=== PATIENT | male | born 2000 | race Caucasian/White ===

== ENCOUNTER 2025-01-15 11:10 | Emergency (ER) | payer OTHER, MEDICARE, MEDICAID, SELFPAY ==
[2025-01-15] VITALS (24 sets, daily range): BP systolic 117–154; BP diastolic 70–92; PULSE 62–99; RESP 12–20; O2SAT 91–99
--- NOTE | 2025-01-15 11:26 | PC.NURSE ---
Patient has propanolol filled on 01/13 with 60 tablets. 33 tablets are left in the bottle.
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
--- OUTSIDE RECORDS SUMMARY | 2025-01-15 11:59 | XMS_ITS | Clinical Summary ---
Author Organization [facility] Address [facility] [place] [address] Care Team Providers Care Technology Intern Name Role Phone None, Provider MD Primary Care Provider Unavaila ble Allergies No known active allergies Medications brexpiprazole 2 MG tablet Take 2 mg by mouth daily. 01/30/2022 Active metFORMIN ER 500 MG 24 hr tablet Take 1,000 mg by mouth 2 (two) times daily. 06/21/2021 Active hydrOXYzine 25 MG tablet Take 25 mg by mouth 3 (three) times daily as needed for Itching. 01/30/2022 Active Social History Tobacco Use Types Packs/Day Years Used Date Smoking Tobacco: Never Assessed Sex and Gender Information Value Date Recorded Sex Assigned at Not on file Legal Sex Male 8:14 PM CDT Gender Identity Not on file Sexual Orientation Not on file Last Filed Vital Signs Vital Sign Reading Time Taken Comments Blood Pressure 141/81 03/14/2022 12:43 PM CDT Pulse 92 03/14/2022 12:43 PM CDT Temperature 36.8 C (98.3 F) 03/14/2022 12:43 PM CDT Respiratory Rate 20 03/14/2022 12:43 PM CDT Oxygen Saturation 99% 03/14/2022 12:43 PM CDT Inhaled Oxygen Concentration - - Weight 122.5 kg (270 lb) 03/13/2022 8:28 PM CDT Height 195.6 cm (6' 5 ) 03/13/2022 8:28 PM CDT Body Mass Index 32.02 03/13/2022 8:28 PM CDT Plan of Treatment Health Maintenance Due Date Last Done Comments Annual Physical 2004 HPV Vaccines (1 - Male 3-dos e series) 2016 Meningococcal B Vaccine (1 o f 2 - Standard) 2017 Hepatitis C 2019 DTaP, Tdap and Td Vaccines ( 1 - Tdap) 2020 Hepatitis B Vaccines (1 of 3 - 19+ 3-dose series) 2020 COVID-19 Vaccine (1 - 2023-2 5 season) 2024 Influenza Adult (#1) 2024 Meningococcal Vaccine Aged Out No claude ivelisse eligible based on patient's age to complete this topic Pneumococcal Vaccine: Pediat rics (0 to 5 Years) and At-Risk Patients (6 to 64 Years) Aged Out No longer eligible b ased on patient's age to complete this topic RSV Immunizations Under 20 Months Aged Out No longer eligible based on patient's age to complete this topic Insurance [facility] MEDICARE Care Teams Technology Intern Relationship Specialty Start Date End Date None, Provider, PCP - General 03/13/22
--- OUTSIDE RECORDS SUMMARY | 2025-01-15 11:59 | XMS_ITS | Patient Health Record ---
Author Organization [facility] Address [address] [place] [address] Care Team Providers Care Instructor Tap Dancing Name Role Phone Alba Pompa Primary Care Provider [phone] Harjit Hazelnavya Unavailable [phone] ShawMarina Unavailable [phone] Yuliet Petersony Unavailable [phone] See Mak Unavailable [phone] Allergies Allergen (clinical drug ingredient) Drug/Non Drug Allergy documented on EMR Reaction Allergy Type Onset Date Status clindamycin Clindamycin Unknown Drug Allergy Act tiana Results Component Value Reference Range Notes HIV Screen *HIV 1, 2 Ab, p24 Ag ([id number]) (Not yet reviewed by provider) Interpretation: Performing Lab:[facility], [address] [facility], Phone - [phone], [facility] Notes[facility]Report: HIV Ab/p24 Ag Screen Non Reactive Non Reactive HIV-1/HIV-2 antibodies and HIV-1 p24 antigen were NOT detected. There is no laboratory evidence of HIV infection. HIV Negative CMP 14 Comprehensive Metabol ic Panel* (Not yet reviewed by provider) Interpretation: Performing Lab:[facility], [address] [employer], [place], Phone - [phone], [facility] Notes/Report: Glucose 90 70-99 mg/dL BUN 10 6-20 mg/dL Creatinine 0.83 0.76-1.27 mg/dL eGFR 126 >59 mL/min/1.73 BUN/Creatinine Ratio 12 9-20 Sodium 142 134-144 mmol/L Potassium 4.4 3.5-5.2 mmol/L Chloride 104 96-106 mmol/L Carbon Dioxide, Total 24 20-29 mmol/L Calcium 9.6 8.7-10.2 mg/dL Protein, Total 7.0 6.0-8.5 g/dL Albumin 4.7 4.3-5.2 g/dL Globulin, Total 2.3 1.5-4.5 g/dL Bilirubin, Total 0.3 0.0-1.2 mg/dL Alkaline Phosphatase 73 44-121 IU/L AST (SGOT) 33 0-40 IU/L ALT (SGPT) 48 0-44 IU/L CBC With Differential/Platel et* (Not yet reviewed by provider) Interpretation: Performing Lab:[facility] [place], [address] [facility], Phone - [phone], Director - Bill Notes/Report: WBC 5.9 3.4-10.8 x10E3/uL RBC 5.00 4.14-5.80 x10E6/uL Hemoglobin 14.8 13.0-17.7 g/dL Hematocrit 45.0 37.5-51.0 % MCV 90 79-97 fL MCH 29.6 26.6-33.0 pg MCHC 32.9 31.5-35.7 g/dL RDW 13.1 11.6-15.4 % Platelets 266 150-450 x10E3/uL Neutrophils 54 Not Estab. % Lymphs 33 Not Estab. % Monocytes 10 Not Estab. % Eos 2 Not Estab. % Basos 1 Not Estab. % Neutrophils (Absolute) 3.2 1.4-7.0 x10E3/uL Lymphs (Absolute) 1.9 0.7-3.1 x10E3/uL Monocytes(Absolute) 0.6 0.1-0.9 x10E3/uL Eos (Absolute) 0.1 0.0-0.4 x10E3/uL Baso (Absolute) 0.1 0.0-0.2 x10E3/uL Immature Granulocytes 0 Not Estab. % Immature Grans (Abs) 0.0 0.0-0.1 x10E3/uL QuantiFERON-TB Gold Plus ([id number]) (Not yet reviewed by provider) Interpretation: Performing Lab:[facility] [place], [address] [facility], [place], Phone - [phone], Director - Bill Notes/Report: QuantiFERON Incubation Incubation performed. QuantiFERON-TB Gold Plus Negative Negative No response to M tuberculosis antigens detected. Infection with M tuberculosis is unlikely, but high risk individuals should be considered for additional testing (ATS/IDSA/CDC Clinical Practice Guidelines, 2017). The reference range is an Antigen minus Nil result of <0.35 IU/mL. Chemiluminescence immunoassay methodology QuantiFERON Criteria QuantiFERON-TB Gold Plus is a qualitative indirect test for M tuberculosis infection (including disease) and is intended for use in conjunction with risk assessment, radiography, and other medical and diagnostic evaluations. The QuantiFERON-TB Gold Plus result is determined by subtracting the Nil value from either TB antigen (Ag) value. The Mitogen tube serves as a control for the test. QuantiFERON TB1 Ag Value 0.03 QuantiFERON TB2 Ag Value 0.02 QuantiFERON Nil Value 0.01 QuantiFERON Mitogen Value >10.00 12 Panel Urine Drug Screen Reviewed date:01/11/2025 12:09:44 PM Interpretation: Performing Lab: Notes/Report: THC POS KIRILL neg MOP (OPI) neg AMP neg MET neg BAR neg BZO POS MDMA neg MTD neg OXY neg PCP neg BUP neg Breathalyzer Reviewed date:01/11/2025 12:10:09 PM Interpretation: Performing Lab: Notes/Report: HUNTER 0.000 Reason For Referral No Information Medications Medication SIG (Take, Route, Frequency, Duration) Notes Start Date End Date Status Venlafaxine HCl ER 150 MG 1 capsule [...] a day for 30 days 01/13/2025 Active Propranolol HCl 20 MG 1 tablet Orally Tw ice a day for 30 days 01/13/2025 Active OLANZapine 15 MG 1 tablet Orally Once a day for 30 days Active Social History Tobacco Use: Social History Observation Description Date Details (start date - stop date) Never Smoker NA - NA PRAPARE Question Answer Notes Date Completed/Updated: 01/11/2025 What is your current housing situation? I have h ousing Are you worried about losing your housing? No What is the highest level of school that you have finished? High school diploma or GED What is your current work situation? Oth erwise unemployed but not seeking work (ex. 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 Check all that apply I do not have problems meeting my needs Has lack of transportation k ept you from medical appointments, meetings, work or from getting things needed for daily living? No How often do you see or talk to people that you care about and feel close to? (For example: talking to friends on the phone, visiting friends or family, going to pentecostalism or club meetings) More than 5 times a week In the past year have you sp ent more than 2 nights in a row in a shelter, nursing home, shelter center, or juvenile correctional facility? No Are you a refugee? No What country are you from? [place] Do you feel physically and e motionally safe where you currently live? Unsure In the past year, have you b een afraid of your partner or ex-partner? No PRAPARE Score: 4 Tobacco Control (Standard) Question Answer Notes Tobacco use: Nonsmoker Problems Problem Type SNOMED Code ICD Code Onset Dates Problem Status W/U Status Risk Notes Problem Generalized anxiety disorder (05085566) KATHLEEN (generalized anxiety disorder) (F41.1) Active confirmed Problem Autism (97098971) Autism (F84.0) Active confirmed Problem Moderate recurrent major depression (31762220) Recurrent depressive disorder, current episode moderate (F33.1) Active confirmed Vital Signs Heart Rate 113 /min 01/13/2025 Temperature 98.0 degrees Fahrenheit 01/11/2025 Respiratory Rate 16 /min 01/13/2025 Oximetry 98 % 01/13/2025 Blood pressure diastolic 70 mm Hg 01/13/2025 Height 77 in 01/13/2025 Blood pressure systolic 120 mm Hg 01/13/2025 Weight 246.6 lbs 01/13/2025 BMI 29.24 kg/m2 01/13/2025 Encounters Encounter Location Date Provider Diagnosis [facility] [place] [address] 01/13/2025 Marina Shaw Autism F84.0 ; Recurrent depressive disorder, current episode moderate F33.1 ; KATHLEEN (generalized anxiety disorder) F41.1 ; DM (diabetes mellitus) E11.9 and Nutritional counseling Z71.[address] [place] [address] 01/11/2025 Corrie Peterson [address] [place] [address] 01/11/2025 Alba Pompa Adult general medical exam Z00.00 and Nutritional counseling Z71.3 Formerly [facility], [facility] [address] [address] 01/14/2025 See Mak Assessments Encounter Date Diagnosis (ICD Code) Assessment Notes Treatment Notes Treatment Clinical Notes Section Notes 01/11/2025 Adult general medical exam (ICD-10 - Z00.00) 01/13/2025 Autism (ICD-10 - F84.0) 01/13/2025 Recurrent depressive disorder, current episode moderate (ICD-10 - F33.1) 01/11/2025 Nutritional counseling (ICD-10 - Z71.3) 01/13/2025 KATHLEEN (generalized anxiety disorder) (ICD-10 - F41.1) 01/13/2025 DM (diabetes mellitus) (ICD-10 - E11.9) 01/13/2025 Nutritional counseling (ICD-10 - Z71.3) 01/11/2025 Other Clinician met w ith client to assess needs for residential services. Clinician gathered information regarding historical presentation of mental health and substance use symptoms including withdrawal, HIV Risk assessment, psychiatric hospitalization history and presenting concern. Clinician conducted PHQ9 and CSSRS assessments as well as social drivers of health screening for the purposes of identifying additional service needs. 01/11/2025 Other Continue treatment as recommended by [facility] staff. Encouraged patient to obtain routine medical care with patient's own primary care provider or establish as a patient at [facility] if no current primary care provider. Plan Of Treatment Pending Test Test Name Order Date HIV Screen *HIV 1, 2 Ab, p24 Ag ([id number]) 01/11/2025 CBC With Differential/Platelet* 01/12/20 25 CMP 14 Comprehensive Metabolic Panel* QuantiFERON-TB Gold Plus ([id number]) 2024 Future Test Test Name Order Date Hemoglobin A1c* 01/13/2025 Valproic Acid (Depakote)(R),S 01/13/2025 TSH+Free T4* 01/13/2025 Lipid Panel* 01/13/2025 Next Appt Details Provider Name:Marcel sanchez, 01/18/2025 08:40:00 AM, [address], [place], [address], Insurance Providers Payer Name Payer Address Payer Phone Subscriber Number Group Number Insured Name Patient Relationship to Insured Coverage Start Date Coverage End Date MEDICARE PART A [address] [place] [address] [id number] Avery Neves Self - patient is the insured 5 [facility] [address] [place] [address] [id number] Avery Neves Self - patient is the insured 5 MEDICAID [address] [facility] [place] [address] [id number] Avery Neves Self - patient is the insured 5 Medical (General) History Medical History History ICD Code Possible diabetes or history- DM (diabetes mellitus) E11.9 Surgical History Surgery Date(Month/Year) Left Hand surgery 2016 Right knee surgery 2019 Hospitalization History Reason Date(Month/Year) Stomach pumped for Ibuprofen overdose
--- OUTSIDE RECORDS SUMMARY | 2025-01-15 11:59 | XMS_ITS | Encounter Summary ---
Author Organization [facility] Address [address] [place] [address] Care Team Providers Care Lead Handler Name Role Phone David Stephenson MD Unavailable [phone] Sohail Souza MD Primary Care Provider [phone] Reason for Referral * MRI/CAT/PET Scan (Routine) - Closed Specialty Diagnoses / Procedures Referred By Contac t Referred To Contact Radiology Diagnoses Chronic pain of right knee Procedures MRI Knee Right WO Contrast Sohail Souza MD [address] [place] [address] DR MIRANDA [address] [place] [address] Phone: tel: fax: [address] [address] Referral ID Status Reason Start Date Expiration Date Visits Re quested Visits Authorized [id number] Closed 10/13/2024 11/12/2025 1 1 ETING/SALES PERSON Reason for Visit * Reason Onset Date Comments Hip Pain 10/12/2024 Encounter Details Date Type Department Care Team (Late st Contact Info) Description 10/12/2024 Nurse Triage [facility] Family Medicine at [address] [place] [phone] Sohail Souza MD [address] [place] [address] DR MIRANDA [address] [place] [address] Chronic pain of right knee (Primary Dx) Social History Tobacco Use Types Packs/Day Years Used Date Smoking Tobacco: Never Smokeless Tobacco: Never Alcohol Use Standard Drinks/Week Comments No 0 (1 standard drink = 0.6 oz pure alcohol) Has tried a sip of alcohol on occasion AUDIT-C Answer Date Recorded Q1: How often do you have a drink containing alcohol? Never 06/15/2024 Q2: How many drinks containi ng alcohol do you have on a typical day when you are drinking? Patient does not drink Q3: How often do you have si x or more drinks on one occasion? Never 06/15/2024 PHQ-2 Answer Date Recorded PHQ-2 Total Score (If total score is 3 or more points, staff should administer the PHQ-9) 2 06/15/2024 PHQ-9 Answer Date Recorded PHQ-9 Total Score 6 06/15/2024 Personal Safety Answer Date Recorded Have you ever been in or are you currently in a harmful physical or emotional relationship or is someone making you feel afraid or unsafe? Denies 10/11/2024 Sex and Gender Information Value Date Recorded Sex Assigned at Not on file Legal Sex Male 9:00 AM MARKETING/SALES PERSON Gender Identity Not on file Sexual Orientation Not on file Occupation Industry Job Start Date Job End Date Student Not on file Not on file Not on file documented as of this encounter Miscellaneous Notes * Telephone Encounter - Pili Smith - 10/13/2024 9:43 AM CST Appt 10/18/2024 Gave his Mom the phone number to call to schedule the MRI ETING/SALES PERSON * Telephone Encounter - Lupe Tinsley RN - 10/13/2024 9:32 AM CST MRI ordered ETING/SALES PERSON * Telephone Encounter - Sohail Souza MD - 10/12/2024 5:13 PM CST Recommend to be seen this week. MRI of Right knee can be ordered ETING/SALES PERSON * Telephone Encounter - Hortencia Brown RN - 10/12/2024 12:02 PM CST Spoke with pts mom Heide, HIPAA verified. Pt is with her. Pt broke knee cap about 4 years ago. Aches when it rains and adjusts the way he walks on it. Mom thinks he has been walking funny to compensate and may have caused this issue with pain now. When he lifts his foot he feels pain up to lower back. 10/11 Pt went to ED after taking 10 Ibuprofen for pain. IV steroid given in ED.Sent home from ED. Tx plan was to give tylenol and ibuprofen at home. Pt is still having pain. Pain is between moderate and severe. Pt has to go up one stair at a time. Pt needed assistance to get out of bed this am and does not normally need assistance. Sweating from pain. Pain is shooting from knee to outer thigh and base of tailbone an in to butt muscle. Pt istender in tailbone area. Moving the leg creates the pain. Also Hurts with sitting. Denies any known injury. Pt is able to walk and bear weight. Denies fever or redness. Offered pt CC appt. No appts in office. Pt / mother would prefer Sohail Souza MD review and advise further recommendations. Pt advised to use ice/ moist heat. Continue tylenol and ibuprofen as directed. Call back for worsengin symptoms. Reason for Disposition Patient wants to be seen Protocols used: Hip Yuil-Dajbm-EB ETING/SALES PERSON * Telephone Encounter - Hortencia Brown RN - 10/12/2024 11:55 AM CST Regarding: Severe pain right knee, into thigh and into back ----- Message from Ashley Jacobs sent at 10/12/2024 11:53 AM MARKETING/SALES PERSON ----- Symptom Based Call Chief Complaint(s): Severe pain right knee, into thigh and into back Duration: 2 days What type of symptom(s) is the patient experiencing? Red Flag. Is the patient concerned they are experiencing a medical emergency requiring an ambulance? No Additional Comments: Patient states the pain is severe and has trouble getting out of bed and moving around.. Patient then took 10 Ibuprofen and resulted in emergency room visit at [facility] 10/11/24.Patient did not get answers to his pain and states pain continues. Unable to schedule appointment which is what started original call. Mother states patient is sweating due to pain. Does message need to be routed? Yes-Action Needed ETING/SALES PERSON documented in this encounter Plan of Treatment Scheduled Orders Name Type Priority Associated Diagnoses Orde r Schedule MRI Knee Right WO Contrast Imaging Schedule Routine, Read Routine (OP Routine) Chronic pain of right knee Expected: 10/13/2024, Expires: 10/13/2025 documented as of this encounter Visit Diagnoses Diagnosis Chronic pain of right knee- Primary documented in this encounter Care Teams Lead Handler Relationship Specialty Start Date End Date Sohail Souza MD [address] [facility] [address] [place] [address] PCP - General Family Medicine 05/28/23 David Stephenson MD [address] [facility] [address] [place] [address] Surgeon Orthopedic Surgery 05/24/19 documented as of this encounter
--- OUTSIDE RECORDS SUMMARY | 2025-01-15 11:59 | XMS_ITS ---
Author Organization [facility] Address [address] [place] [address] Care Team Providers Care Manager Motor Name Role Phone Alba Pompa Primary Care Provider See Mak Unavailable [phone] REASON FOR VISIT CRU est psych Medications Medication SIG (Take, Route, Frequency, Duration) Notes Start Date End Date Status Divalproex Sodium 250 MG 1 tablet Orally [...] a day for 30 days 01/13/2025 Active Venlafaxine HCl ER 150 MG 1 capsule with food Orally Once a day for 30 days Active OLANZapine 15 MG 1 tablet Orally Once a day for 30 days Active Encounters Encounter Location Date Provider Diagnosis [facility], [facility] [address], [place] [address] 01/14/2025 See Mak Plan Of Treatment Next Appt Details Provider Name:Marcel sanchez, 01/18/2025 08:40:00 AM, [address], [place], [address], Progress Notes * Avery BHAGATDOB:2000 (24 yo M)Acc No.[id number]:01/14/2025 DNS Patient: Avery DOWD Provider: EARLENE Reese :2000 A ge:24 Y S ex:Male Date:01/14/2025 Address:[address] [place] [address] [address] [facility] Pcp:Alba Pompa Check 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: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 Subjective: * Chief Complaints: * C RU est psych * Medical History: * Surgical History: * Hospitalization/Major Diagno stic Procedure: * Medications: T akingDivalproex Sodium ER 500 MG Tablet Extended Release 24 Hour 1 tablet by mouth every evening Orally Once a day traZODone HCl 50 MG Tablet 1 tablet at bedtime as needed Orally Once a day Divalproex Sodium 250 MG Tablet Delayed Release 1 tablet Orally once a day Venlafaxine HCl ER 150 MG Capsule Extended Release 24 Hour 1 capsule with food Orally Once a day OLANZapine 15 MG Tablet 1 tablet Orally Once a day Propranolol HCl 20 MG Tablet 1 tablet Orally Twice a day Venlafaxine HCl ER 75 MG Capsule Extended Release 24 Hour 1 capsule with food Orally Once a day Taking Divalproex Sodium ER 500 MG Tablet Extended Release 24 Hour 1 tablet by mouth every evening Orally Once a day Taking traZODone HCl 50 MG Tablet 1 tablet at bedtime as needed Orally Once a day Taking Divalproex Sodium 250 MG Tablet Delayed Release 1 tablet Orally once a day Taking Venlafaxine HCl ER 150 MG Capsule Extended Release 24 Hour 1 capsule with food Orally Once a day Taking OLANZapine 15 MG Tablet 1 tablet Orally Once a day Taking Propranolol HCl 20 MG Tablet 1 tablet Orally Twice a day Taking Venlafaxine HCl ER 75 MG Capsule Extended Release 24 Hour 1 capsule with food Orally Once a day Objective: * Vitals: Assessment: Plan: * Treatment: * Procedure Codes: * * Sign off status: Completed true * Provider: EARLENE Reese Date: 01/14/2025 Generated for Jaycob bryson/Joselito/Martina on: 01/15/2025 11:59 AM CDT
--- OUTSIDE RECORDS SUMMARY | 2025-01-15 11:59 | XMS_ITS | Clinical Summary ---
Author Organization [facility] Address [address] [place] [address] Care Team Providers Care Spud Driller Name Role Phone David Stephenson MD Unavailable [phone] Sohail Souza MD Primary Care Provider [phone] Allergies Active Allergy Reactions Criticality Noted Date Comments Clindamycin Vomiting Low 09/15/2020 Stomach/GI Upset, Vomiting Insulin Lispro Rash,Blisters High 08/30/[address] (Depakote) 250 mg EC tablet Take 1 tab (250mg) in morning and 1 tab at night with 500mg tab for total night time dose of 750mg. 60 tablet 3 07/30/20 23 Active divalproex ER (DEPAKOTE ER) 500 mg 24 hr tabletIndications: Autism Take 1 tablet (500 mg total) by mouth nightly 90 tablet 3 07/30/20 23 Active OLANZapine (ZyPREXA ZYDIS) 5 mg disintegrating tablet Take 1 tablet (5 mg total) by mouth daily as needed (anxiety) 30 tablet 12/17/19 24 Active OLANZapine (ZyPREXA) 15 mg tablet Take 1 tablet (15 mg total) by mouth nightly 30 tablet 2 12/22/19 24 Active traZODone (DESYREL) 50 mg tablet 1 TWICE A DAY NEEDED ANXIETY ORAL 04/08/20 24 Active hydrocortisone (ANUSOL-HC) 2.5 % rectal creamIndications:G rade I hemorrhoids Insert into the rectum 4 (four) times a day as needed for hemorrhoids (rectal discomfort) Apply to affected areas 30 g 06/15/20 24 Active Additional Information Patient not taking.Reported on 11/11/2024 venlafaxine XR (EFFEXOR-XR) 150 mg 24 hr capsule Take 1 capsule (150 mg total) by mouth daily 08/10/20 24 Active cyclobenzaprine (FLEXERIL) 10 mg tabletIndications: Right hip pain Take 1 tablet (10 mg total) by mouth 2 (two) times a day as needed for muscle spasms 30 tablet 1 10/18/20 24 Active Active Problems Problem Noted Date Diagnosed Date Grade I hemorrhoids 06/15/2024 Assessment & Plan (11/11/2024 4:00 PM MOLDING PRESS OPERATOR): Small volume painless intermittent rectal bleeding likely due to hemorrhoids. He has had two colonoscopies done in evaluation of this, most recently [address]asenor (will request records). Recommend: -Fiber supplementation (ie metamucil or citrucel, etc) -Stay well hydrated -Avoid from straining -Anusol HC 25 mg one suppository per rectum two times per day x 7 days -If progressive/persistent rectal bleeding despite the above, then will refer to Colorectal Surgery in consideration of definitive management Medicare annual wellness visit, subsequent 06/15 Assessment & Plan (06/15/2024 12:30 PM CDT): Patient here for annual Medicare wellness visit and for review of complete medical problem list. All the elements of the plan were completed as outlined by CMS. A copy of the prevention plan was given to the patient. I reviewed Medicare Wellness Questionnaire (other physicians involved in care, depression screen, advanced directives), cognitive/memory, and functional assessment. Forms scanned in progress notes. I reviewed and updated the complete problem list, medication list, family history, and immunization records with the patient. I provided preventive counseling and early detection interventions to the patient through health maintenance update and summary of today's office visit. Personalized Prevention Plan Services (PPPS): Opioid Use: No Immunization: [id number]: Not Applicable. [id number]: Not Applicable. PCV20: Highly Recommended Influenza: Highly Recommended HepatitisB: Not Applicable. Tetanus: Highly Recommended Shingles: Highly Recommended RSV: Highly Recommended Cancer Screening: Mammogram: Not Applicable. PAP Smear: Not Applicable. Prostate Cancer Screening: Not Applicable. Colorectal Cancer Screening: Not Applicable. Lung Cancer Screening: Not Applicable. Others: Diet: Lifestyle education regarding diet discussed. Exercise: Encouraged regular daily exercise. Medication Use: Aspirin use discussion. DEXA Scan: Not Applicable. Glaucoma Screening: Recommended Annually. Audio Screen ordered? No Diabetes: Not Applicable. Annual Labs: Ordered For Today. Abdominal Aortic Aneurysm Screening: Not Applicable. HIV Screening: Not Applicable. Smoking cessation Counselling: Not Applicable. 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 BMI 30.0-30.9,adult 12/17/2023 Uses marijuana 12/17/2023 Psychophysiological insomnia 12/17/2023 Right ear pain 10/02/2023 Assessment & Plan (10/02/2023 5:24 PM MOLDING PRESS OPERATOR): Treat for otitis externa and AOM Ofloxacin drops and augmentin as directed Tylenol or ibuprofen per package instructions as needed for discomfort Chronic idiopathic constipation 05/28/2023 Transaminitis 08/19/2022 Recurrent major depressive disorder, in remissio n 05/16/2021 Closed displaced transverse fracture of right pa tella 05/24/2019 Autism 05/24/2019 Closed nondisplaced fracture of right patella Overview (05/21/2019): Added automatically from request for surgery [id number] Mild cannabis use disorder 03/17/2019 Assessment & Plan (03/17/2019 4:57 PM CDT): Spent much of today using brief [place] techniques to gently confront his MJ use, discuss its effects on the brain versus medications versus love versus exercise. Discussed differences between immediate sensations versus long-term effects (see psychotherapy below). ADHD (attention deficit hyperactivity disorder) 07/29/2018 Generalized anxiety disorder 05/07/2018 Assessment & Plan (03/17/2019 4:53 PM CDT): Since increasing Mirtazapine and Effexor, patient's anxiety has been much reduced. He denies always feeling on edge or constant worrying, though he attributes much of this to his marijuana use. At this time, counseled and used [place] techniques to approach his cannabis use, no changes to his medications indicated. -CONTINUE Effexor XR 300mg PO daily -CONTINUE Mirtazapine 30mg PO qHS -CONTINUE Rexulti 2mg PO daily for depression augmentation The risks, benefits, alternatives, and side effects were discussed with the patient and his guardian and the patient assented and guardian consented to continued treatment. Assessment & Plan (12/16/2018 2:13 PM MOLDING PRESS OPERATOR): As discussed above, the irritability on exam, as well as desire to use CBD likely has an anxiety source/component. He appears more edgy and restless on exam, and as such, will increase Venlafaxine XR as above. We discussed at length the very minimal effects on anxiety CBD may have, and certainly no anti-depressant effects of CBD. We also discussed the fact CBD is an inhibitor of 2D6 and 3A4, both of which metabolize Venlafaxine. As such, we recommended against the use of CBD also because it may increase levels of Venlafaxine. -INCREASE Venlafaxine XR to 300mg PO daily as above -CONTINUE Mirtazapine 15mg PO qHS The risks, benefits, alternatives, and side effects were discussed with the patient and his guardian and the patient assented and guardian consented to continued treatment. Assessment & Plan (10/14/2018 8:29 PM MOLDING PRESS OPERATOR): He does have some irritability on exam, but denies persistent worry, difficulty sleeping or concentrating. As above, will continue to monitor symptoms, consider up-titrating Venlafaxine as needed. -Venlafaxine XR 225mg, Mirtazapine 15mg, and Rexulti 2mg as above. Assessment & Plan (07/29/2018 4:10 PM CDT): No worsened anxiety, no sleep or concentration difficulties. No changes indicated -Continue Effexor, Remeron, Rexulti as above Assessment & Plan (05/20/2018 6:24 PM CDT): Condition is currently stable. Has anxiety with IV medication and fluid administration. Plan: -Continue home venlafaxine in the morning and mirtazapine at night -May need child life for IV/IM medication administration Assessment & Plan (05/19/2018 9:34 AM CDT): Condition is currently stable. Has anxiety with IV medication and fluid administration. Plan: -Continue home venlafaxine in the morning and mirtazapine at night -May need child life for IV/IM medication administration Assessment & Plan (05/18/2018 10:42 PM CDT): Condition is currently stable. Has anxiety with IV medication and fluid administration. Plan: -No mIVF unless poor PO intake or signs of dehydration -Continue home venlafaxine in the morning and mirtazapine at night -May need child life for IV/IM medication administration FERDINAND (obstructive sleep apnea) 05/06/2018 Displaced fracture of neck o f unspecified metacarpal bone, subsequent encounter for fracture with routine healing 07/11/2017 Periodic limb movement disorder 06/12/2017 Disturbance in sleep behavior 05/08/2017 Enlarged tonsils 05/08/2017 Hearing difficulty 05/08/2017 Developmental delay 06/05/2011 Obesity 06/05/2011 Resolved Problems Problem Noted Date Diagnosed Date Resolved Date Hyperglycemia 03/13/2020 06/16/2024 Type 1 diabetes mellitus without complication 05/18/20 18 06/16/2024 Overview (06/25/2018): + Antibody panel Assessment & Plan (05/20/2018 6:23 PM CDT): Avery is a 17 year old with a history of ASD and ADHD who presented with hyperglycemia and 3-4 weeks of polyuria, polydipsia, and weight loss. HbA1C was 12.7%. Given his lack of symptoms of DKA, normal blood gas, lack of urine ketones, and physical exam findings of acanthosis nigricans, he is more likely to have Type 2 diabetes than Type 1. He is also taking a medication, Rixulti (brexpiprazole) that is known to cause metabolic side effects and can cause diabetes. I:C ratio was decreased today as he had higher sugars before meals. He will start metformin today. Plan for discharge today after diabetes education is completed. Plan: - Discharge today - BG 5x/day - Metformin XR 500mg w/breakfast - 30 lantus, 1:8 carb, ISF 30 - BG target 120 for daytime and 150 for nighttime - Urine ketones check if BG >300 - Strict I/Os - Diabetic diet - F/u labs: Type 1 antibody panel - Psych, child life, SW, education, nutrition c/s Assessment & Plan (05/19/2018 9:33 AM CDT): Avery is a 17 year old with a history of ASD and ADHD who presented with hyperglycemia and 3-4 weeks of polyuria, polydipsia, and weight loss. HbA1C was 12.7%. Given his lack of symptoms of DKA, normal blood gas, lack of urine ketones, and physical exam findings of acanthosis nigricans, he is more likely to have Type 2 diabetes than Type 1. He is also taking a medication, Rixulti (brexpiprazole) that is known to cause metabolic side effects and can cause diabetes. If he does not have any contraindications, we will start metformin today while continuing treatment with insulin. Plan: - BG 5x/day - 30 lantus, 1:10 carb, ISF 30 - BG target 120 for daytime and 150 for nighttime - Urine ketones check if BG >300 - Strict I/Os - Diabetic diet - F/u labs: T4, TTG-IgA, insulin level, Type 1 antibody panel - Psych, child life, SW, education, nutrition c/s Assessment & Plan (05/18/2018 10:39 PM CDT): Avery is a 17 year old with a history of ASD and ADHD who presents with 3-4 weeks of polyuria, polydipsia, and weight loss. He was found to have elevated blood glucose at his PMD's office, likely due to new onset diabetes mellitus. His weight loss of about 40 lbs in the last 1 1/2 months is partially intentional, as he has increased his activity and cut out soda due to weight gain from his medication. However, this rate of weight loss seems out of proportion to his lifestyle changes. It is unclear whether this is new onset Type 1 or Type 2 diabetes. However, given his lack of symptoms of DKA, normal blood gas, lack of urine ketones, and physical exam findings of acanthosis nigricans are suggestive of a diagnosis of type 2. He is also taking a medication, Rixulti (brexpiprazole) that is known to cause metabolic side effects and can cause diabetes. Plan: -BG 5x/day -30 lantus, 1:10 carb, hyperglycemia factor 30 -BG target 120 for daytime and 150 for nighttime -Urine ketones check if BG >300 -Strict I/Os -Diabetic diet -Non-dextrose fluids if decreased urine output or poor fluid intake -Follow up C-peptide and insulin levels -Labs: thyroid testing (TSH, T4), fasting lipids, celiac testing (TTG-IgA, IgA), CMP Severe recurrent major depre ssion without psychotic features 05/07/2018 05/16/2021 Assessment & Plan (03/17/2019 4:56 PM CDT): No recent SI/HI, no problems with anhedonia, patient actually expressing to mom it's a good day , and on exam, much more euthymic. No changes indicated. Continue medications as above. Assessment & Plan (12/16/2018 2:10 PM MOLDING PRESS OPERATOR): Similar to last visit, while patient is fairly dismissive initially of depressive symptoms, he does describe continued desire to use CBD oil, as he feels his overall depression and suicidality is worse than before. He is more irritable as well, with less interest and passion experienced when playing his video games. These dysphoric and irritability symptoms are likely related to a combination of under-treated anxiety and depression, and as such, there is an indication to increase his Effexor to 300mg. -INCREASE Effexor XR to 300mg PO daily (prescribed 75mg in addition to the 225mg tablets) -CONTINUE Mirtazapine 15mg PO qHS -CONTINUE Brexpiprazole 2mg PO daily The risks, benefits, alternatives, and side effects were discussed with the patient and his guardian and the patient assented and guardian consented to continued treatment. Assessment & Plan (10/14/2018 8:27 PM MOLDING PRESS OPERATOR): Today, while he denies SI/HI, he clearly has pessimistic self-talk on exam. He describes a lot of indifference and not caring, for example stating the only reason he continues to take his insulin is because of his mom. He continues to enjoy his usual activities, but feels they won't make a difference. He has stable sleep and concentration. Given his worsened irritability and pessimism, we encouraged behavioral activation and engagement in pleasureable and calming activities for now, and in the future will consider up-titration of Venlafaxine to 300mg. -CONTINUE Venlafaxine XR 225mg PO daily -CONTINUE Mirtazapine 15mg PO qHS -CONTINUE Brexpiprazole 2mg PO daily The risks, benefits, alternatives, and side effects were discussed with the patient and his guardian and the patient assented and guardian consented to continued treatment. Assessment & Plan (07/29/2018 4:09 PM CDT): No recent depressive symptoms, even with new diagnosis of T1DM. No anheodnia, and is continuing to enjoy activities. No feelings of low-self worth. No SI. No changes in medications necessary. Though slightly tired and groggy in the mornings, does not want to increase Mirtazapine for the paradoxical decrease in sedation. -CONTINUE Mirtazapine 15mg PO qHS -CONTINUE Effexor XR 225mg PO qHS -CONTINUE Rexulti 2mg PO daily The risks, benefits, alternatives, and side effects were discussed with the patient and his guardian and the patient assented and guardian consented to continued treatment. 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 Assessment & Plan (12/16/2018 2:15 PM MOLDING PRESS OPERATOR): On exam, Avery continues to display [id number] thinking with high levels of rigidity and concreteness. Several of his recent arguments as well as suspension seem to have a component to them related to his ASD symptoms, in that he cannot incorporate others' points of views, only sees his way as the only possibility, and if others' view points differ, he becomes increasingly irritable and aggressive. Assessment & Plan (10/14/2018 8:28 PM MOLDING PRESS OPERATOR): Stable symptoms. Continued rigidity, which may play a part in his pessimism too. Will continue to monitor. Assessment & Plan (07/29/2018 4:16 PM CDT): Stable symptoms. Continued rigidity on exam. -Effexor, Amparon, Rexulti as above. Assessment & Plan (05/20/2018 6:24 PM CDT): Condition is currently stable. Talked to psychiatry today and his primary psychiatrist would like to continue Rexulti at this time as it has been the only medication that has worked well for him. Will follow-up with psychiatrist outpatient after discharge. Plan: -Continue Rexulti -Continue melatonin for sleep -Follow up with primary psychiatrist Assessment & Plan (05/19/2018 9:33 AM CDT): Condition is currently stable. May need to consider a medication change if his Rexulti is the cause of his diabetes. Plan: -Continue Rexulti -Continue melatonin for sleep -Follow up with primary psychiatrist Assessment & Plan (05/18/2018 10:40 PM CDT): Condition is currently stable. May need to consider a medication change if his Rexulti is the cause of his diabetes. Plan: -Continue Rexulti -Continue melatonin for sleep -Follow up with primary psychiatrist Encounters Date Type Department Care Team Description 01/03/2025 10:51 AM CDT - 01/03/2025 3:56 PM CDT Emergency [facility] [address] [place] [address] Deyvi Tobin DO Riesenberger, Timothy Mark, MD Excessive anger (Primary Dx); Impulsive Discharge Disposition: Discharge to home or self care 12/31/2024 8:30 AM MOLDING PRESS OPERATOR Therapy [facility] OP Physical Therapy [address] [address] Ankita Monique, PT Right hip pain (Primary Dx) 12/21/2024 Telephone [facility] at [address] [place] [phone] Sohail Souza MD 1st no show letter sent 12/21/24 12/09/2024 1:30 PM MOLDING PRESS OPERATOR Therapy [facility] Physical Therapy [address] [place] [phone] Pippa Emery, SPIN INSTRUCTOR Right hip pain (Primary Dx) 12/07/2024 1:30 PM MOLDING PRESS OPERATOR Therapy [facility] Physical Therapy [address] [place] [phone] Felipa Jurado, SPIN INSTRUCTOR Right hip pain (Primary Dx) 12/02/2024 2:15 PM MOLDING PRESS OPERATOR Therapy [facility] Physical Therapy [address] [place] [phone] Pippa Emery, SPIN INSTRUCTOR Right hip pain (Primary Dx) 11/25/2024 2:15 PM MOLDING PRESS OPERATOR Therapy [facility] Physical Therapy [address] [place] [phone] Pippa Emery, SPIN INSTRUCTOR Right hip pain (Primary Dx) 11/23/2024 2:15 PM MOLDING PRESS OPERATOR Therapy [facility] Physical Therapy [address] [place] [phone] Felipa Jurado, SPIN INSTRUCTOR Right hip pain (Primary Dx) 11/19/2024 5:15 PM MOLDING PRESS OPERATOR Therapy [facility] Physical Therapy [address] [place] [phone] Felipa Jurado, SPIN INSTRUCTOR Right hip pain (Primary Dx) 11/18/2024 Plan of Care Documentation [facility] Physical Therapy [address] [place] [phone] 11/17/2024 1:30 PM MOLDING PRESS OPERATOR Therapy [facility] Physical Therapy [address] [place] [address] [address] [place] [address] Ankita Monique, PT Right hip pain 11/11/2024 10:00 AM MOLDING PRESS OPERATOR Office Visit [facility] at [address] [place] [address] Michel Jc MD Rectal bleeding 11/11/2024 Orders Only [facility] at [address] [place] [address] Michel Jc MD Rectal bleeding (Primary Dx) 11/02/2024 Telephone [facility] at [address] [place] [address] Sohail Souza MD peer to peer Mri (R) hip without contrast 10/18/2024 9:32 AM MOLDING PRESS OPERATOR - 10/18/2024 11:59 PM MOLDING PRESS OPERATOR Hospital Encounter [facility] [address] [place] [phone] Right hip pain; Right hip pain Discharge Disposition: Discharge to home or self care 10/18/2024 9:00 AM MOLDING PRESS OPERATOR Office Visit [facility] at [address] [place] [address] Sohail Souza MD Right hip pain (Primary Dx) 10/18/2024 Telephone [facility] at [address] [place] [address] Sohail Souza MD from Last 3 Months Immunizations Immunization Administration Dates Next Due Influenza, Unspecified 10/18/2024(Deferr ed: Patient Refused),11/28/2023(Deferred: Patient decision),07/01/2023(Deferred: Patient decision),06/27/2022(Deferred: Patient decision) Tdap 06/12/2023 Surgical History Surgery Date Site/Laterality Comments TONSILLECTOMY/ADENOIDECTOMY 11/03/2017 PATELLAR TENDON REPAIR 10/27/2018 - 10/26/2019 Medical History Medical History Date Comments Autism spectrum disorder ADHD (attention deficit hype ractivity disorder) Periodic limb movement disorder Depression Anxiety Type 1 diabetes (HCC) diagnosed 05/18/18, on metformin and insulin Marijuana abuse no cocaine or ot her drugs FERDINAND (obstructive sleep apnea) s/ p T&A, no further sx Type 2 diabetes mellitus (HCC) Severe recurrent major depre ssion without psychotic features (HCC) 05/07/2018 Family History Medical History Relation Name Comments ADD / ADHD Cousin Cancer Father Bipolar disorder Maternal Grandmother Diabetes Maternal Grandmother Hypertension Mother Family history of hypertension - (Added by TW Conv) Bipolar disorder Mother's Sister Stroke Other 1 Mental illness Other 2 Hearing loss Other 3 Kidney disease Other 4 Heart disease Other 5 Depression Neg Hx Schizophrenia Neg Hx Suicide Attempts Neg Hx Relation Name Status Comments Cousin Father Alive Maternal Grandmother Mother Alive Mother's Sister Other 1 Other 2 Other 3 Other 4 Other 5 Social History Tobacco Use Types Packs/Day Years Used Date Smoking Tobacco: Never Smokeless Tobacco: Never Tobacco Cessation:Counseling Given: Not Answered Alcohol Use Standard Drinks/Week Comments No 0 (1 standard drink = 0.6 oz pure alcohol) Has tried a sip of alcohol on occasion AUDIT-C Answer Date Recorded Q1: How often do you have a drink containing alcohol? Never 10/18/2024 Q2: How many drinks containi ng alcohol do you have on a typical day when you are drinking? Patient does not drink Q3: How often do you have si x or more drinks on one occasion? Never 10/18/2024 PHQ-2 Answer Date Recorded PHQ-2 Total Score (If total score is 3 or more points, staff should administer the PHQ-9) 2 06/15/2024 PHQ-9 Answer Date Recorded PHQ-9 Total Score 6 06/15/2024 Personal Safety Answer Date Recorded Have you ever been in or are you currently in a harmful physical or emotional relationship or is someone making you feel afraid or unsafe? Denies 01/03/2025 Sex and Gender Information Value Date Recorded Sex Assigned at Not on file Legal Sex Male 9:00 AM MOLDING PRESS OPERATOR Gender Identity Not on file Sexual Orientation Not on file Occupation Industry Job Start Date Job End Date Student Not on file Not on file Not on file Obstetrics History Last Filed Vital Signs Vital Sign Reading Time Taken Comments Blood Pressure 136/87 01/03/2025 3:55 PM CDT Pulse 98 01/03/2025 3:55 PM CDT Temperature 37.2 C (99 F) 01/03/2025 12:04 PM CDT Respiratory Rate 16 01/03/2025 3:55 PM CDT Oxygen Saturation 100% 01/03/2025 3:55 PM CDT Inhaled Oxygen Concentration - - Weight 117 kg (257 lb 15 oz) 01/03/2025 10:52 AM CDT Height 195.6 cm (6' 5 ) 11/11/2024 9:55 AM MOLDING PRESS OPERATOR Body Mass Index 30.59 11/11/2024 9:55 AM MOLDING PRESS OPERATOR Plan of Treatment Health Maintenance Due Date Last Done Comments Hepatitis C Screening 2001 Dilated Eye Exam 2011 Varicella Vaccines (1 of 2 - 13+ 2-dose series) 2014 HPV Vaccines (1 - Male 3-dose series) 2016 Meningococcal B Vaccine (1 of 2 - Standard) 2017 Hepatitis B Screening 2019 Pneumococcal vaccine <65 (1 of 2 - PCV) 2020 Foot Exam 11/29/2020 11/29/2019 Albumin Creatinine Ratio, Urine 11/26/2024 11/26/2023, 12/14/2021 Lipid Panel 11/26/2024 11/26/2023, 11/28, 12/14/2021, Additional history exists Hemoglobin A1C 12/16/2024 06/15/2024, 10/29, 05/28/2023, Additional history exists Influenza Vaccine (#1) 2025 Postp oned from 06/27/2024 (Patient declined, but will receive in the future) Depression Screening 06/15/2025 06/15/2024, 06/15/2024, 05/28/2023, Additional history exists Regular Well Visit/Exam 18-64 06/15/2025 06/15/2024, 05/28/2023 TSH Level 01/03/2026 01/03/2025, 10/29, 10/21/2022, Additional history exists eGFR 01/03/2026 01/03/2025, 09/26, 11/26/2023, Additional history exists DTaP/Tdap/Td Vaccine (2 - Td or Tdap) 06/12/2033 06/12/2023 Medical Devices Implanted Type Area Home Health Registered Nurse Device Identifier Shelf Expiration Date Model / Serial / Lot [employer] Nephew/[employer] rtho [id number] 4mm 6mm 1.3mm 44mm 2.9mm Cannulated Self Tap Self Drill Trocar - [id number] Implanted:Qty: 2 on 05/24/2019 by Peter Anderson DO at [facility] Right: [employer]/Or tho [id number] / / Explanted Type Area Home Health Registered Nurse Device Identifier Shelf Expiration Date Model / Serial / Lot [employer] Nephew/[employer]/O rtho [id number] 1.3mm 140mm Bayonet Guide Pin Orthopedic Sterile Disposable 4mm 5 - [id number] Explanted:Qty: 2 on 05/24/2019 by Peter Anderson DO at [facility] Right: [employer]/Or tho [id number] / / Procedures Procedure Name Priority Date/Time Associated Diagnosis Comments EGFR STAT 01/03/2025 11:12 AM CDT DIFFERENTIAL AUTO STAT 01/03/2025 11: 12 AM CDT DRUGS OF ABUSE SCREEN, URINE WITHOUT CONFIRMATION STAT 01/03/2025 11:12 AM CDT ETHANOL STAT 01/03/2025 11:12 AM CDT THYROID FUNCTION CASCADE STAT 01/03/2025 11:12 AM CDT COMPREHENSIVE METABOLIC PANEL STAT 01/03/2025 11:12 AM CDT CBC WITH AUTO DIFFERENTIAL STAT 01/03/2025 11:12 AM CDT URINALYSIS AND REFLEX TO MICROSCOPIC AND CULTURE STAT 01/03/2025 11:12 AM CDT XR HIP RIGHT 2 OR 3 VIEWS Schedule Routine, Read Routine (OP Routine) 10/18/2024 10:07 AM MOLDING PRESS OPERATOR Right hip pain POCT HEMOGLOBIN A1C Routine 06/15/2024 1 :31 PM CDT Prediabetes LIPID PANEL Routine 11/26/2023 9:40 AM MOLDING PRESS OPERATOR Type 1 diabetes mellitus without complication (HCC) ALBUMIN CREATININE RATIO, URINE Routine 11/26/2023 9:29 AM MOLDING PRESS OPERATOR Type 1 diabetes mellitus without complication (HCC) HM DIABETES FOOT EXAM Routine 11/29/2019 from Last 3 Months or Most Recently Relevant to Health Maintenance Results * eGFR (01/03/2025 11:12 AM CDT) eGFR >90 >=60 mL/min/1. 73 m2 Comment: Interpretive Data Reference Interval Normal >/= 90 mL/min/1.73m2 Mildly decreased* 60 - 89 mL/min/1.73m2 Mildly to moderately decreased 45 - 59 mL/min/1.73m2 Moderately to severely decreased 30 - 44 mL/min/1.73m2 Severely decreased 15 - 29 mL/min/1.73m2 Kidney Failure < 15 mL/min/1.73m2 *Relative to young adult level Estimated glomerular filtration rate is determined by the 2020 CKD-EPI equation recommended by the National Kidney Foundation (A Unifying Approach to GFR Estimation: Recommendations of the NKF-ASK Task Force on Reassessing the Inclusion of Race in Diagnosing Kidney Disease, JASN 202). The CKD-EPI equation should not be used for patients with unstable renal function and has not been validated in children and those over 70. Current interpretive data was last reviewed 2021. Blood 01/03/2025 11:1 2 AM CDT 01/03/2025 11:20 AM CDT us Deyvi Tobin DO LAB BLOOD ORDERABLES Final Result [facility] [address] [facility] Department [place] [address] * Differential, auto (01/03/2025 11:12 AM CDT) Pathologist [facility] Neutrophil abs 3.4 1.5 - 6.5 K/cumm Imm gran abs 0.0 0.0 - 0.1 K/cumm [facility] Lymphocyte abs 1.7 0.8 - 3.3 K/cumm [facility] Monocyte abs 0.6 0.2 - 0.8 K/cumm [facility] Eosinophil abs 0.1 0.0 - 0.5 K/cumm [facility] Basophil abs 0.0 0.0 - 0.1 K/cumm [facility] Neutrophil pct 58.3 % [facility] Comment: Interpretive Data Percent cell count reference ranges are not reported, since discordance with absolute values may lead to misinterpretation of CBC data. Current Interpretive Data was last revised on 2018. Imm gran pct 0.3 % [facility] Comment: Interpretive Data Percent cell count reference ranges are not reported, since discordance with absolute values may lead to misinterpretation of CBC data. Current Interpretive Data was last revised on 2018. Lymphocyte pct 29.8 % [facility] Comment: Interpretive Data Percent cell count reference ranges are not reported, since discordance with absolute values may lead to misinterpretation of CBC data. Current Interpretive Data was last revised on 2018. Monocyte pct 9.7 % [facility] Comment: Interpretive Data Percent cell count reference ranges are not reported, since discordance with absolute values may lead to misinterpretation of CBC data. Current Interpretive Data was last revised on 2018. Eosinophil pct 1.4 % [facility] Comment: Interpretive Data Percent cell count reference ranges are not reported, since discordance with absolute values may lead to misinterpretation of CBC data. Current Interpretive Data was last revised on 2018. Basophil pct 0.5 % [facility] Comment: Interpretive Data Percent cell count reference ranges are not reported, since discordance with absolute values may lead to misinterpretation of CBC data. Current Interpretive Data was last revised on 2018. Blood 01/03/2025 11:1 2 AM CDT 01/03/2025 11:20 AM CDT Deyvi Tobin LAB BLOOD ORDERABLES Final Result Performing Organization Address City/[facility] Co de Phone Number JJ [address] [address] * Thyroid Function [place] (01/03/2025 11:12 AM CDT) TSH 1.41 0.30 - 4.20 mcIUnit/mL Blood 01/03/2025 11:1 2 AM CDT 01/03/2025 11:20 AM CDT Deyvi Tobin [facility] BLOOD ORDERABLES Final Result Performing Organization Address [facility] de Phone Number JJ [address] [address] * (ABNORMAL) Urinalysis reflex to microscopic and culture Urine (01/03/2025 11:12 AM CDT) Color, ur Yellow Yellow Clarity, ur Clear Clear [facility] Specific gravity, ur 1.018 1.003 - 1.030 [facility] pH, urine 6.5 [facility] Comment: Interpretive Data U rine pH is affected by diet, medications, systemic acid-base disturbances, and renal tubular function. pH may affect urinary stone formation. For example, urine pH below 6.0 may help reduce the tendency for calcium phosphate stones and pH greater than 6.0 may reduce the tendency for uric acid stone formation. Source: [facility] Current Interpretive Data was last revised on 2017 Protein, ur ql Negative Negative [facility] Glucose, ur ql 4+(A) Negative [facility] Ketones, ur 1+(A) Negative [facility] Bilirubin, ur Negative Negative [facility] Blood, ur Negative Negative [facility] Urobilinogen, ur <2.0 <2.0 mg/dL [facility] Nitrite, ur Negative Negative [facility] Leukocyte esterase, ur Negative Negative [facility] UA reflex comment Reflex conditions for microscopic UA and culture not met. [facility] Urine 01/03/2025 11:1 2 AM CDT 01/03/2025 11:20 AM CDT Deyvi Tobin DO LAB MICROBIOLOGY - GENERAL ORDERABLES Final Result Performing Organization Address City/[facility] Co de Phone Number JJ [address] [address] * CBC with auto differential (01/03/2025 11:12 AM CDT) [facility] WBC 5.8 3.8 - 9.9 K/cumm Hgb 14.1 13.0 - 17.5 g/dL [facility] Hct 42.6 38.9 - 50.3 % [facility] Plt 241 150 - 400 K/cumm [facility] MPV 9.4 9.1 - 12.3 fL [facility] RBC 4.77 4.30 - 5.80 M/cumm [facility] MCV 89.3 81.3 - 96.4 fL [facility] MCH 29.6 27.1 - 33.3 pg [facility] MCHC 33.1 32.3 - 35.7 g/dL [facility] RDW CV 13.2 11.1 - 14.9 % [facility] RDW SD 43.3 35.7 - 48.1 fL [facility] NRBC abs 0.00 0.00 - 0.01 K/cumm [facility] Blood Venous blood specimen / Unknown 01/03/2025 11:12 AM CDT 01/03/2025 11:20 AM CDT Deyvi Tobin DO LAB BLOOD ORDERABLES Final Result Performing Organization Address City/[facility] Co de Phone Number JJ [address] [address] * (ABNORMAL) Drugs of Abuse Screen, Urine without Confirmation (01/03/2025 11:12 AM CDT) [facility] Amphetamine, ur Not Detected CutOff 500ng/mL Comment: Interpretive Data - Amphetamines: Samples containing greater than 500 ng/mL d-methamphetamine or other cross-reacting amphetamine compounds are reported as positive. Amphetamine immunoassays are subject to significant false positive rates due to cross-reactivity of non-amphetamine drugs. Confirmatory testing required for definitive results. Current Interpretive Data was last reviewed 2023. Barbiturates, ur Not Detected CutOff 200ng/mL [facility] Comment: Interpretive Data - Barbiturates: Samples containing greater than 200 ng/mL secobarbital or other cross-reacting barbiturate compounds are reported as positive. False positive and false negative results are possible. Confirmatory testing required for definitive results. Current Interpretive Data was last reviewed 2023. Benzodiazepines, ur Screen Positive, presumptive (A) CutOff 100ng/mL [facility] Comment: Interpretive Data - Benzodiazepines: Samples containing greater than 100 ng/mL nordiazepam or other cross-reacting compounds are reported as positive. False positive and false negative results are possible. Confirmatory testing required for definitive results. Current Interpretive Data was last reviewed 2023. Cannabinoids, ur Screen Positive, presumptive (A) CutOff 50 ng/mL [facility] Comment: Interpretive Data - Cannabinoids: Samples containing greater than 50 ng/mL delta-9 THC -COOH or other cross- reacting compounds are reported as positive. False positive and false negative results are possible. Confirmatory testing required for definitive results. Current Interpretive Data was last reviewed 2023. Cocaine, ur Not Detected CutOff 150ng/mL [facility] Comment: Interpretive Data - Cocaine: Samples containing greater than 150 ng/mL benzoylecgonine or other cross- reacting compounds are reported as positive. False positive and false negative results are possible. Confirmatory testing required for definitive results. Current Interpretive Data was last reviewed 2023. Fentanyl, Ur Not Detected CutOff 5 ng/mL [facility] Comment: Interpretive Data - Fentanyl: Samples containing greater than 5 ng/mL norfentanyl, fentanyl, or other cross-reacting fentanyl compounds are reported as positive. False positive and false negative results are possible. Confirmatory testing required for definitive results. Current Interpretive Data was last reviewed 2024. Methadone, ur Not Detected CutOff 300ng/mL [facility] Comment: Interpretive Data - Methadone: Samples containing greater than 300 ng/mL d,l-methadone or other cross-reacting compounds are reported as positive. False positive and false negative results are possible. Confirmatory testing required for definitive results. Current Interpretive Data was last reviewed 2023. Opiates, ur Not Detected CutOff 300ng/mL [facility] Comment: Interpretive Data - Opiates: Samples containing greater than 300 ng/mL morphine or other cross-reacting compounds are reported as positive. False positive and false negative results are possible. Confirmatory testing required for definitive results. Current Interpretive Data was last reviewed 2023. Oxycodone, ur Not Detected CutOff 100ng/mL [facility] Comment: Interpretive Data - Oxycodone: Samples containing greater than 100 ng/mL oxycodone or other cross-reacting compounds are reported as positive. False positive and false negative results are possible. Confirmatory testing required for definitive results. Current Interpretive Data was last reviewed 2023. Phencyclidine, ur Not Detected CutOff 25 ng/mL [facility] Comment: Interpretive Data - Phencyclidine: Samples containing greater than 25 ng/mL phencyclidine or other cross-reacting compounds are reported as positive. False positive and false negative results are possible. Confirmatory testing required for definitive results. Current Interpretive Data was last reviewed 2023. Urine Creatinine 132 mg/dL JJ Comment: Interpretive Data Urine Creatinine: < 10 mg/dL is extremely dilute = or > 10 but < 20 mg/dL is dilute = or > 20 mg/dL is normal Current Interpretive Data was last revised on 2018. Urine 01/03/2025 11:1 2 AM CDT 01/03/2025 11:20 AM CDT Narrative [facility] - 01/03/2025 11:50 AM CDT Drug of Abuse screening is performed by immunoassay for medical purposes only. This is not to be used for Pain Management purposes. eDyvi Tobin DO LAB URINE ORDERABLES Final Result [facility] [address] [facility] Department [place] [address] * Ethanol (01/03/2025 11:12 AM CDT) Ethanol <10 <=10 mg/dL Comment: Interpretive Data Legal limit of intoxication > or = 80 mg/dL Levels > or = 400 mg/dL are potentially TOXIC. Current interpretive data was last revised on 2018. Blood 01/03/2025 11:1 2 AM CDT 01/03/2025 11:20 AM CDT Deyvi Tobin DO LAB BLOOD ORDERABLES Final Result [facility] [address] [facility] Department [place] [address] * (ABNORMAL) Comprehensive metabolic panel (01/03/2025 11:12 AM CDT) Sodium 140 135 - 145 mmol/L Potassium, pl 3.9 3.3 - 4.9 mmol/L [facility] Chloride 105 97 - 110 mmol/L [facility] CO2 22 22 - 32 mmol/L [facility] Anion gap 13 2 - 15 mmol/L [facility] BUN 3(L) 6 - 25 mg/dL [facility] Creatinine 0.69(L) 0.80 - 1.30 mg/dL [facility] Glucose 152 70 - 199 mg/dL [facility] Comment: Interpretive Data Fasting glucose >/= 126 mg/dl is diagnostic for diabetes. Fasting is defined as no caloric intake for at least 8 hours. Fasting glucose between 100 mg/dl to 125 mg/dl is diagnostic of prediabetes. In a patient with classic symptoms of hyperglycemia or hyperglycemic crisis, a random glucose >/= 200 mg/dl is diagnostic for diabetes. In the absence of unequivocal hyperglycemia, results should be confirmed by repeat testing. The classification and Diagnosis of Diabetes Diabetes Care 202; 46: S19-S40. Current interpretive data was last revised 2022. Calcium 9.2 8.5 - 10.3 mg/dL [facility] Bilirubin, total 0.2 0.1 - 1.2 mg/dL [facility] Protein, pl 7.0 6.5 - 8.5 g/dL [facility] Albumin 4.4 3.5 - 5.0 g/dL [facility] Alk phos 73 40 - 130 Units/L [facility] ALT 32 7 - 55 Units/L [facility] AST 26 10 - 50 Units/L [facility] Blood 01/03/2025 11:1 2 AM CDT 01/03/2025 11:20 AM CDT Deyvi Tobin DO LAB BLOOD ORDERABLES Final Result JJ [facility] [address] [facility] Department [place] [address] * XR Hip Right 2 or 3 Views (10/18/2024 10:07 AM MOLDING PRESS OPERATOR) Anatomical Region Laterality Modality Lower Extremities, Hip, Pelvis Right C omputed Radiography 10/18/2024 12:5 9 PM MOLDING PRESS OPERATOR Narrative 10/18/2024 1:00 PM MOLDING PRESS OPERATOR EXAM DESCRIPTION: XR HIP RIGHT 2 OR 3 VIEWS REASON FOR STUDY: hip pain Pain posterior rt hip x 1 mth, NKI FINDINGS: Two views submitted without comparison. No acute fractures are identified. Alignment is normal. The right hip joint space is normal. IMPRESSION: Normal right hip joint space evaluation. THIS IS AN ELECTRONICALLY VERIFIED FINAL REPORT 10/18/2024 1:00 PM - Electronically signed by Lamin Urias M.D. T: Report ID: [id number] Reading Location: [id number] Procedure Note Lamin Urias MD - 10/18/2024 EXAM DESCRIPTION: XR HIP RIGHT 2 OR 3 VIEWS REASON FOR STUDY: hip pain Pain posterior rt hip x 1 mth, NKI FINDINGS: Two views submitted without comparison. No acute fractures are identified. Alignment is normal. The right hipjoint space is normal. IMPRESSION: Normal right hip joint space evaluation. THIS IS AN ELECTRONICALLY VERIFIED FINAL REPORT 10/18/2024 1:00 PM - Electronically signed by Lamin Urias M.D. T: Report ID: [id number] Reading Location: [id number] Sohail Souza MD IMG XR PROCEDURES Final Result * (ABNORMAL) POCT hemoglobin A1c (06/15/2024 1:31 PM CDT) Hemoglobin A1C, POC 5.8 4.0 - 5.6 % Blood 06/15/2024 1:31 PM CDT Sohail Souza MD POINT OF CARE TEST ORDERABLES Fi nal Result * (ABNORMAL) Lipid panel (11/26/2023 9:40 AM MOLDING PRESS OPERATOR) Cholesterol 165 30 - 199 mg/dL JJ Comment: Interpretive Data Ages < or = 19 years Acceptable: <170 mg/dL Borderline high: 170-199 mg/dL High: >or= 200 mg/dL Ages > or = 20 years Desirable: <200 mg/dL Borderline high: 200-239 mg/dL High: >or= 240 mg/dL Literature References: 1. Expert Panel on Integrated Guidelines for Cardiovascular Health and Risk Reduction in Children and Adolescents. Pediatrics 2011;128:S213 2. NCEP Expert Panel. Circulation 2004;110:227 Current Interpretive Data was last revised on 2018. Triglycerides 94 <=149 mg/dL JJ Comment: Interpretive Data Ages < or = 9 years Acceptable: <75 mg/dL Borderline high: 75-99 mg/dL High: >or= 100 mg/dL Ages 10 to 20 years Acceptable: <90 mg/dL Borderline high: 90-129 mg/dL High: >or= 130 mg/dL Ages > or = 20 years Desirable: <150 mg/dL Borderline high: 150-199 mg/dL High: 200-499 mg/dL Very high: >or= 499 mg/dL Literature References: 1. Expert Panel on Integrated Guidelines for Cardiovascular Health and Risk Reduction in Children and Adolescents. Pediatrics 2011;128:S213 2. NCEP Expert Panel. Circulation 2004;110:227 Current Interpretive Data was last revised on 2018. HDL 38(L) >=40 mg/dL JJ Comment: Interpretive Data Ages < or = 19 years Acceptable: >45 mg/dL Borderline low: 40-45 mg/dL Low: <40 mg/dL Ages > or = 20 years Desirable: >or= 60 mg/dL Low: <40 mg/dL Literature References: 1. Expert Panel on Integrated Guidelines for Cardiovascular Health and Risk Reduction in Children and Adolescents. Pediatrics 2011;128:S213 2. NCEP Expert Panel. Circulation 2004;110:227 Current Interpretive Data was last revised on 2018. LDL, calculated 108 <=129 mg/dL JJ BYRD Comment: Interpretive Data Ages < or = 19 years Acceptable: <110 mg/dL Borderline high: 110-129 mg/dL High: >or= 130 mg/dL Ages > or = 20 years Optimal: <100 mg/dL Near optimal: 100-129 mg/dL Borderline high: 130-159 mg/dL High: >160 mg/dL Literature References: 1. Expert Panel on Integrated Guidelines for Cardiovascular Health and Risk Reduction in Children and Adolescents. Pediatrics 2011;128:S213 2. NCEP Expert Panel. Circulation 2004;110:227 Current Interpretive Data was last revised on 2018. Non-HDL Cholesterol 127 mg/dL JJ BYRD Comment: Interpretive Data Ages < or = 19 years Acceptable: <120 mg/dL Borderline high: 120-144 mg/dL High: >145 mg/dL Ages > or = 20 years When triglycerides are >200 mg/dL, Non-HDL cholesterol is a secondary target of therapy with treatment goals that are 30 mg/dL greater than the LDL cholesterol target. Literature References: 1. Expert Panel on Integrated Guidelines for Cardiovascular Health and Risk Reduction in Children and Adolescents. Pediatrics 2011;128:S213 2. NCEP Expert Panel. Circulation 2004;110:227 Current Interpretive Data was last revised on 2018. Chol/HDL ratio 4 JJ BYRD Blood 11/26/2023 9:40 AM MOLDING PRESS OPERATOR 11/26/2023 9:41 AM MOLDING PRESS OPERATOR us Sohail Souza MD LAB BLOOD ORDERABLES Final Resul t JJ BYRD [address] [facility] Department of Laboratories [place], [place] [id number] * Albumin Creatinine Ratio, Urine (11/26/2023 9:29 AM MOLDING PRESS OPERATOR) Albumin Ur 39.3 mg/L JJ BYRD Comment: Interpretive Data No reference range established. Current interpretive data was last revised 2019. Creatinine Ur 281.0 mg/dL JJ BYDR Comment: Interpretive Data No reference range established. Current interpretive data was last revised 2019. Albumin Creatinine Ratio, Ur 14 1 - 29 mg/g JJ BYRD Urine 11/26/2023 9:29 AM MOLDING PRESS OPERATOR 11/26/2023 9:44 AM MOLDING PRESS OPERATOR us Sohail Souza MD LAB URINE ORDERABLES Final Resul t JJ [facility]RD [address] [facility] Department [place] [address] * DIABETES FOOT EXAM (11/29/2019) Diabetic Foot Exam Normal us Historical Provider HEALTH MAINTENANCE Final Result from Last 3 Months or Most Recently Relevant to Health Maintenance Insurance MEDICARE [facility] Address: [address] [address] [place] [address] [facility] CHOICE PLUS [facility] H[facility]/PPO Address: [address] [address] [place] [address] [facility] [employer] [facility] [employer]/PP[facility] Address: [address] [place] [address] [employer] MEDICARE [facility] Address: [address] [address] [place] [address] [facility] [employer] [facility] H[employer]/PPO Address: [address] [place] [address] [employer] Advance Directives For more information, please contact: [phone] * Full Code (Latest Code Status on File) Date Activated Date Inactivated Comments 05/18/2018 8:16 PM 05/20/2018 7:57 PM * Full Code Date Activated Date Inactivated Comments 05/18/2018 8:16 PM 05/18/2018 8:16 PM Care Teams Spud Driller Relationship Specialty Start Date End Date Sohail Souza MD [address] [address] PCP - General Family Medicine 05/28/23 David Stephenson MD [address] [facility] [address] [place] [address] Surgeon Orthopedic Surgery 05/24/19
--- OUTSIDE RECORDS SUMMARY | 2025-01-15 11:59 | XMS_ITS | Encounter Summary ---
Author Organization [facility] Facility Care Team Providers Care Superintendent Plant Name Role Phone Issa Palma MD Primary Care Provider [phone] David Stephenson MD Unavailable [phone] No, Physician Primary Care Provider [phone] Sohail Souza MD Primary Care Provider [phone] Missy Villasenor MD Unavailable [phone] Encounter Details Date Type Department Care Team (Latest Contact Info) Description 07/29/2017 Orders Only [facility] CLINCON[facility] ProviderShayna MD [address] [place] [id number] Social History Tobacco Use Types Packs/Day Years Used Date Smoking Tobacco: Never Assessed Sex and Gender Information Value Date Recorded Sex Assigned at Not on file Legal Sex Male 9:00 AM [employer] DEV[employer] Gender Identity Not on file Sexual Orientation Not on file documented as of this encounter Plan of Treatment Not on file documented as of this encounter Procedures Procedure Name Priority Date/Time Associated Diagnosis Comments PROCEDURE - RESULT 07/29/2017 12 :00 AM CDT documented in this encounter Results * PROCEDURE - RESULT (07/29/2017 12:00 AM CDT) Narrative 07/29/2017 12:00 AM CDT Ordered by an unspecified provider. Historical Provider Final Res ult documented in this encounter Visit Diagnoses Not on filedocumented in this encounter Care Teams Superintendent Plant Relationship Specialty Start Date End Date Issa Palma MD [address] [place] [address] PCP - General 05/12/17 12/13/21 No, Physician PCP - General 12/14/21 05/27/23 Sohail Souza MD [address] [facility] [address] [place] [address] PCP - General Family Medicine 05/28/23 David Stephenson MD [address] [facility] [address] [place] [address] Surgeon Orthopedic Surgery 05/24/19 Missy Villasenor MD [address] [facility] [address] [place] [address] Consulting Physician Gastroenterology 11/28/23 11/28/23 documented as of this encounter
--- OUTSIDE RECORDS SUMMARY | 2025-01-15 11:59 | XMS_ITS | Referral Summary ---
Author Organization [facility] Address [address] [place] [address] Care Team Providers Care Lawn Care Professional Name Role Phone David Stephenson MD Unavailable [phone] Sohail Souza MD Primary Care Provider [phone] Encounters Date Type Department Care Team Description 01/03/2025 10:51 AM CDT - 01/03/2025 3:56 PM CDT Emergency [address] [address] Deyvi Tobin DO Riesenberger, Timothy Mark, MD Excessive anger (Primary Dx); Impulsive Discharge Disposition: Discharge to home or self care 12/31/2024 8:30 AM HIGH DENSITY FINISHING OPERATOR Therapy [facility] OP Physical Therapy [address] [place] [address] [address] [place] [address] Ankita Monique, PT Right hip pain (Primary Dx) 12/21/[address] [facility] Family Medicine at [address] [place] [address] Sohail Souza MD 1st no show letter sent 12/21/24 12/09/2024 1:30 PM HIGH DENSITY FINISHING OPERATOR Therapy [facility] OP Physical Therapy [address] [place] [address] [address] [place] [address] Pippa Emery, FIRESTOPPER INSTALLER Right hip pain (Primary Dx) 12/07/2024 1:30 PM HIGH DENSITY FINISHING OPERATOR Therapy [facility] OP Physical Therapy [address] [place] [address] Felipa Jurado, FIRESTOPPER INSTALLER Right hip pain (Primary Dx) 12/02/2024 2:15 PM HIGH DENSITY FINISHING OPERATOR Therapy [facility] OP Physical Therapy [address] [place] [address] Pippa Emery, FIRESTOPPER INSTALLER Right hip pain (Primary Dx) 11/25/2024 2:15 PM HIGH DENSITY FINISHING OPERATOR Therapy [facility] OP Physical Therapy [address] [place] [address] Pippa Emery, FIRESTOPPER INSTALLER Right hip pain (Primary Dx) 11/23/2024 2:15 PM HIGH DENSITY FINISHING OPERATOR Therapy [facility] OP Physical Therapy [address] [place] [address] Felipa Jurado, FIRESTOPPER INSTALLER Right hip pain (Primary Dx) 11/19/2024 5:15 PM HIGH DENSITY FINISHING OPERATOR Therapy [facility] OP Physical Therapy [address] [place] [address] Felipa Jurado, FIRESTOPPER INSTALLER Right hip pain (Primary Dx) 11/18/2024 Plan of Care Documentation [facility] OP Physical Therapy [address] [place] [address] 11/17/2024 1:30 PM HIGH DENSITY FINISHING OPERATOR Therapy [facility] OP Physical Therapy [address] [place] [address] Ankita Monique, PT Right hip pain 11/11/[address] [facility] Gastroenterology at [address] [address] Michel Jc MD Rectal bleeding (Primary Dx) 11/11/2024 10:00 AM HIGH DENSITY FINISHING OPERATOR Office Visit [facility] Gastroenterology at [address] [place] [address] Michel Jc MD Rectal bleeding 11/02/2024 Telephone [facility] Family Medicine at [address] [place] [address] Sohail Souza MD peer to peer Mri (R) hip without contrast 10/18/2024 Telephone [facility] Medicine at [address] [place] [address] Sohail Souza MD 10/18/2024 9:32 AM HIGH DENSITY FINISHING OPERATOR - 10/18/2024 11:59 PM HIGH DENSITY FINISHING OPERATOR Hospital Encounter [facility] Diag Imaging [address] [place] [address] Right hip pain; Right hip pain Discharge Disposition: Discharge to home or self care 10/18/2024 9:00 AM HIGH DENSITY FINISHING OPERATOR Office Visit [facility] Family Medicine at [address] [place] [address] Sohail Souza MD Right hip pain (Primary Dx) from Last 3 Months Allergies Active Allergy Reactions Criticality Noted Date [...] TWICE A DAY NEEDED ANXIETY ORAL 04/08/20 Active hydrocortisone (ANUSOL-HC) 2.5 % rectal creamIndications:Fadi oconnell I hemorrhoids Insert into the rectum 4 (four) times a day as needed for hemorrhoids (rectal discomfort) Apply to affected areas 30 g 06/15/20 Active Additional Information Patient not taking.Reported on 11/11/2024 venlafaxine XR (EFFEXOR-XR) 150 mg 24 hr capsule Take 1 capsule (150 mg total) by mouth daily 08/10/20 Active cyclobenzaprine (FLEXERIL) 10 mg tabletIndications: Right hip pain Take 1 tablet (10 mg total) by mouth 2 (two) times a day as needed for muscle spasms 30 tablet 1 10/18/20 24 Active Active Problems Problem Noted Date Diagnosed Date Grade I hemorrhoids 06/15/2024 Assessment & Plan (11/11/2024 4:00 PM HIGH DENSITY FINISHING OPERATOR): Small volume painless intermittent rectal bleeding [...] Plan Services (PPPS): Opioid Use: No Immunization: [id number]: Not Applicable. [id number]: Not Applicable. PCV20: Highly Recommended Influenza: Highly [...] 10/02/2023 Assessment & Plan (10/02/2023 5:24 PM HIGH DENSITY FINISHING OPERATOR): Treat for otitis externa and AOM Ofloxacin drops and augmentin as directed Tylenol or ibuprofen per package instructions as needed for discomfort Chronic idiopathic constipation 05/28/2023 Transaminitis 08/19/2022 Recurrent major depressive disorder, in remissio n 05/16/2021 Closed displaced transverse fracture of right pa tella 05/24/2019 Autism 05/24/2019 Closed nondisplaced fracture of right patella Overview (05/21/2019): Added automatically from request for surgery [id number] Mild cannabis use disorder 03/17/2019 Assessment & Plan (03/17/2019 4:57 PM CDT): Spent much of today using brief AK techniques to gently confront his MJ use, [...] use. At this time, counseled and used AK techniques to approach his cannabis use, no changes to his medications indicated. -CONTINUE Effexor XR 300mg PO daily -CONTINUE Mirtazapine 30mg PO qHS -CONTINUE Rexulti 2mg PO daily for depression augmentation The risks, benefits, alternatives, and side effects were discussed with the patient and his guardian and the patient assented and guardian consented to continued treatment. Assessment & Plan (12/16/2018 2:13 PM HIGH DENSITY FINISHING OPERATOR): As discussed above, the irritability on [...] treatment. Assessment & Plan (10/14/2018 8:29 PM HIGH DENSITY FINISHING OPERATOR): He does have some irritability on [...] above. Assessment & Plan (12/16/2018 2:10 PM HIGH DENSITY FINISHING OPERATOR): Similar to last visit, while patient [...] treatment. Assessment & Plan (10/14/2018 8:27 PM HIGH DENSITY FINISHING OPERATOR): Today, while he denies SI/HI, he [...] formulation. Assessment & Plan (12/16/2018 2:15 PM HIGH DENSITY FINISHING OPERATOR): On exam, vAery continues to display [id number] thinking with high levels of rigidity and [...] aggressive. Assessment & Plan (10/14/2018 8:28 PM HIGH DENSITY FINISHING OPERATOR): Stable symptoms. Continued rigidity, which may play a part in his pessimism too. Will continue to monitor. Assessment & Plan (07/29/2018 4:16 PM CDT): Stable symptoms. Continued rigidity on exam. -Effexor, Remeron, Rexulti as above. Assessment & Plan (05/20/2018 [...] for sleep -Follow up with primary psychiatrist Immunizations Immunization Administration Dates Next Due Influenza, Unspecified 10/18/2024(Deferr ed: Patient Refused),11/28/2023(Deferred: Patient decision),07/01/2023(Deferred: Patient decision),06/27/2022(Deferred: Patient decision) Tdap 06/12/2023 Social History Tobacco Use Types Packs/Day Years [...] on file Legal Sex Male 9:00 AM HIGH DENSITY FINISHING OPERATOR Gender Identity Not on file Sexual Orientation Not on file Occupation Industry Job Start Date Job End Date Student Not on file Not on file Not on file Last Filed Vital Signs [...] cm (6' 5 ) 11/11/2024 9:55 AM HIGH DENSITY FINISHING OPERATOR Body Mass Index 30.59 11/11/2024 9:55 AM HIGH DENSITY FINISHING OPERATOR Plan of Treatment Not on file Medical Devices Implanted Type Area Teacher Vocal Device Identifier Shelf Expiration Date Model / Serial / Lot [employer] Nephew/[employer]/O rtho [id number] 4mm 6mm 1.3mm 44mm 2.9mm Cannulated Self Tap Self Drill Trocar - [id number] Implanted:Qty: 2 on 05/24/2019 by Peter Anderson DO at [facility] Right: Patella [employer]hew/[employer]/Or tho [id number] / / Explanted Type Area Teacher Vocal Device Identifier Shelf Expiration Date Model / Serial / Lot & Nephew/[employer]/O rtho [id number] 1.3mm 140mm Bayonet Guide Pin Orthopedic Sterile Disposable 4mm 5 - [id number] Explanted:Qty: 2 on 05/24/2019 by Peter Anderson DO at [facility] Right: [employer]/Or tho [id number] / / Procedures Procedure Name Priority Date/Time [...] Read Routine (OP Routine) 10/18/2024 10:07 AM HIGH DENSITY FINISHING OPERATOR Right hip pain POCT HEMOGLOBIN A1C Routine 06/15/2024 1 :31 PM CDT Prediabetes LIPID PANEL Routine 11/26/2023 9:40 AM HIGH DENSITY FINISHING OPERATOR Type 1 diabetes mellitus without complication (HCC) ALBUMIN CREATININE RATIO, URINE Routine 11/26/2023 9:29 AM HIGH DENSITY FINISHING OPERATOR Type 1 diabetes mellitus without complication (HCC) DIABETES FOOT EXAM Routine 11/29/2019 from Last [...] of Race in Diagnosing Kidney Disease, JASN 2020). The CKD-EPI equation should not be used for patients with unstable renal function and has not been validated in children and those over 70. Current interpretive data was last reviewed 2021. Blood 01/03/2025 11:1 2 AM CDT 01/03/2025 11:20 AM CDT Deyvi Tobin DO LAB BLOOD ORDERABLES Final Result [facility] [address] [facility] Department [place] [address] * Differential, auto (01/03/2025 11:12 AM CDT) Neutrophil abs 3.4 1.5 - 6.5 K/cumm Imm gran abs 0.0 0.0 - 0.1 K/cumm [facility] Lymphocyte abs 1.7 0.8 - 3.3 K/cumm [facility] Monocyte abs 0.6 0.2 - 0.8 K/cumm [facility] Eosinophil abs 0.1 0.0 - 0.5 K/cumm [facility] Basophil abs 0.0 0.0 - 0.1 K/cumm [facility] Neutrophil pct 58.3 % [facility] Comment: Interpretive Data Percent cell count reference ranges are not reported, since discordance with absolute values may lead to misinterpretation of CBC data. Current Interpretive Data was last revised on 2018. Imm gran pct 0.3 % [facility] Comment: Interpretive Data Percent cell count reference ranges are not reported, since discordance with absolute values may lead to misinterpretation of CBC data. Current Interpretive Data was last revised on 2018. Lymphocyte pct 29.8 % [facility] Comment: Interpretive Data Percent cell count reference ranges are not reported, since discordance with absolute values may lead to misinterpretation of CBC data. Current Interpretive Data was last revised on 2018. Monocyte pct 9.7 % [facility] Comment: Interpretive Data Percent cell count reference ranges are not reported, since discordance with absolute values may lead to misinterpretation of CBC data. Current Interpretive Data was last revised on 2018. Eosinophil pct 1.4 % [facility] Comment: Interpretive Data Percent cell count reference ranges are not reported, since discordance with absolute values may lead to misinterpretation of CBC data. Current Interpretive Data was last revised on 2018. Basophil pct 0.5 % [facility] Comment: Interpretive Data Percent cell count reference ranges are not reported, since discordance with absolute values may lead to misinterpretation of CBC data. Current Interpretive Data was last revised on 2018. Blood 01/03/2025 11:1 2 AM CDT 01/03/2025 11:20 AM CDT us Deyvi Tobin DO LAB BLOOD ORDERABLES Final Result JJ [address] [facility] Department [place] [address] * Thyroid Function [place] (01/03/2025 11:12 AM CDT) TSH 1.41 0.30 - 4.20 mcIUnit/mL Blood 01/03/2025 11:1 2 AM CDT 01/03/2025 11:20 AM CDT Deyvi Tobin DO LAB BLOOD ORDERABLES Final Result Performing Organization Address [facility] de Phone Number JJ BYRD [address] [place] [address] * (ABNORMAL) Urinalysis reflex to microscopic and culture Urine (01/03/2025 11:12 AM CDT) Color, ur Yellow Yellow Clarity, ur Clear Clear [facility] Specific gravity, ur 1.018 1.003 - 1.030 [facility] pH, urine 6.5 [facility] Comment: Interpretive Data U rine pH is affected by diet, medications, systemic acid-base disturbances, and renal tubular function. pH may affect urinary stone formation. For example, urine pH below 6.0 may help reduce the tendency for calcium phosphate stones and pH greater than 6.0 may reduce the tendency for uric acid stone formation. Source: [facility] Current Interpretive Data was last revised on 2017 Protein, ur ql Negative Negative [facility] Glucose, ur ql 4+(A) Negative [facility] Ketones, ur 1+(A) Negative [facility] Bilirubin, ur Negative Negative [facility] Blood, ur Negative Negative [facility] Urobilinogen, ur <2.0 <2.0 mg/dL [facility] Nitrite, ur Negative Negative [facility] Leukocyte esterase, ur Negative Negative [facility] UA reflex comment Reflex conditions for microscopic UA and culture not met. [facility] Urine 01/03/2025 11:1 2 AM CDT 01/03/2025 11:20 AM CDT Dyevi Tobin DO LAB MICROBIOLOGY - GENERAL ORDERABLES Final Result Performing Organization Address City/[facility] Co de Phone Number JJ [address] [place] [address] * CBC with auto differential (01/03/2025 11:12 AM CDT) WBC 5.8 3.8 - 9.9 K/cumm Hgb 14.1 13.0 - 17.5 g/dL [facility] Hct 42.6 38.9 - 50.3 % [facility] Plt 241 150 - 400 K/cumm [facility] MPV 9.4 9.1 - 12.3 fL [facility] RBC 4.77 4.30 - 5.80 M/cumm [facility] MCV 89.3 81.3 - 96.4 fL [facility] MCH 29.6 27.1 - 33.3 pg [facility] MCHC 33.1 32.3 - 35.7 g/dL [facility] RDW CV 13.2 11.1 - 14.9 % [facility] RDW SD 43.3 35.7 - 48.1 fL [facility] NRBC abs 0.00 0.00 - 0.01 K/cumm [facility] Blood Venous blood specimen / Unknown 01/03/2025 11:12 AM CDT 01/03/2025 11:20 AM CDT Deyvi Tobin DO LAB BLOOD ORDERABLES Final Result [facility] [address] [facility] Department [place] [address] * (ABNORMAL) Drugs of Abuse Screen, Urine without Confirmation (01/03/2025 11:12 AM CDT) [facility] Amphetamine, ur Not Detected CutOff 500ng/mL Comment: Interpretive Data - Amphetamines: Samples containing greater than 500 ng/mL d-methamphetamine or other cross-reacting amphetamine compounds are reported as positive. Amphetamine immunoassays are subject to significant false positive rates due to cross-reactivity of non-amphetamine drugs. Confirmatory testing required for definitive results. Current Interpretive Data was last reviewed 2023. Barbiturates, ur Not Detected CutOff 200ng/mL [facility] Comment: Interpretive Data - Barbiturates: Samples containing greater than 200 ng/mL secobarbital or other cross-reacting barbiturate compounds are reported as positive. False positive and false negative results are possible. Confirmatory testing required for definitive results. Current Interpretive Data was last reviewed 2023. Benzodiazepines, ur Screen Positive, presumptive (A) CutOff 100ng/mL [facility] Comment: Interpretive Data - Benzodiazepines: Samples containing greater than 100 ng/mL nordiazepam or other cross-reacting compounds are reported as positive. False positive and false negative results are possible. Confirmatory testing required for definitive results. Current Interpretive Data was last reviewed 2023. Cannabinoids, ur Screen Positive, presumptive (A) CutOff 50 ng/mL [facility] Comment: Interpretive Data - Cannabinoids: Samples containing greater than 50 ng/mL delta-9 THC -COOH or other cross- reacting compounds are reported as positive. False positive and false negative results are possible. Confirmatory testing required for definitive results. Current Interpretive Data was last reviewed 2023. Cocaine, ur Not Detected CutOff 150ng/mL [facility] Comment: Interpretive Data - Cocaine: Samples containing greater than 150 ng/mL benzoylecgonine or other cross- reacting compounds are reported as positive. False positive and false negative results are possible. Confirmatory testing required for definitive results. Current Interpretive Data was last reviewed 2023. Fentanyl, Ur Not Detected CutOff 5 ng/mL [facility] Comment: Interpretive Data - Fentanyl: Samples containing greater than 5 ng/mL norfentanyl, fentanyl, or other cross-reacting fentanyl compounds are reported as positive. False positive and false negative results are possible. Confirmatory testing required for definitive results. Current Interpretive Data was last reviewed 2024. Methadone, ur Not Detected CutOff 300ng/mL [facility] Comment: Interpretive Data - Methadone: Samples containing greater than 300 ng/mL d,l-methadone or other cross-reacting compounds are reported as positive. False positive and false negative results are possible. Confirmatory testing required for definitive results. Current Interpretive Data was last reviewed 2023. Opiates, ur Not Detected CutOff 300ng/mL [facility] Comment: Interpretive Data - Opiates: Samples containing greater than 300 ng/mL morphine or other cross-reacting compounds are reported as positive. False positive and false negative results are possible. Confirmatory testing required for definitive results. Current Interpretive Data was last reviewed 2023. Oxycodone, ur Not Detected CutOff 100ng/mL [facility] Comment: Interpretive Data - Oxycodone: Samples containing greater than 100 ng/mL oxycodone or other cross-reacting compounds are reported as positive. False positive and false negative results are possible. Confirmatory testing required for definitive results. Current Interpretive Data was last reviewed 2023. Phencyclidine, ur Not Detected CutOff 25 ng/mL JJ Comment: Interpretive Data - Phencyclidine: Samples containing [...] AM CDT 01/03/2025 11:20 AM CDT Narrative JJ - 01/03/2025 11:50 AM CDT Drug of Abuse screening is performed by immunoassay for medical purposes only. This is not to be used for Pain Management purposes. Deyvi Tobin DO LAB URINE ORDERABLES Final Result Performing Organization Address City/[facility] Co de Phone Number [place] [phone] [facility] [place] [address] * Ethanol (01/03/2025 11:12 AM CDT) Ethanol <10 <=10 mg/dL Comment: Interpretive Data Legal limit of intoxication > or = 80 mg/dL Levels > or = 400 mg/dL are potentially TOXIC. Current interpretive data was last revised on 2018. Blood 01/03/2025 11:1 2 AM CDT 01/03/2025 11:20 AM CDT Deyvi Tobin DO LAB BLOOD ORDERABLES Final Result Performing Organization Address City/[facility] Co de Phone Number [place] [phone] [facility] [place] [address] * (ABNORMAL) Comprehensive metabolic panel (01/03/2025 11:12 AM CDT) Sodium 140 135 - 145 mmol/L Potassium, pl 3.9 3.3 - 4.9 mmol/L [facility] Chloride 105 97 - 110 mmol/L [facility] CO2 22 22 - 32 mmol/L [facility] Anion gap 13 2 - 15 mmol/L [facility] BUN 3(L) 6 - 25 mg/dL [facility] Creatinine 0.69(L) 0.80 - 1.30 mg/dL [facility] Glucose 152 70 - 199 mg/dL [facility] Comment: Interpretive Data Fasting glucose >/= 126 [...] classification and Diagnosis of Diabetes Diabetes Care 2021; 46: S19-S40. Current interpretive data was last revised 2022. Calcium 9.2 8.5 - 10.3 mg/dL [facility] Bilirubin, total 0.2 0.1 - 1.2 mg/dL [facility] Protein, pl 7.0 6.5 - 8.5 g/dL [facility] Albumin 4.4 3.5 - 5.0 g/dL [facility] Alk phos 73 40 - 130 Units/L [facility] ALT 32 7 - 55 Units/L [facility] AST 26 10 - 50 Units/L [facility] Blood 01/03/2025 11:1 2 AM CDT 01/03/2025 11:20 AM CDT us Deyvi Tobin DO LAB BLOOD ORDERABLES Final Result JJ [address] [facility] Department [place] [address] * XR Hip Right 2 or 3 Views (10/18/2024 10:07 AM HIGH DENSITY FINISHING OPERATOR) Anatomical Region Laterality Modality Lower Extremities, Hip, Pelvis Right C omputed Radiography 10/18/2024 12:5 9 PM HIGH DENSITY FINISHING OPERATOR Narrative 10/18/2024 1:00 PM HIGH DENSITY FINISHING OPERATOR EXAM DESCRIPTION: XR HIP RIGHT 2 [...] by Lamin Urias M.D. T: Report ID: [id number] Reading Location: [id number] Procedure Note Lamin Urias MD - 10/18/2024 [...] by Lamin Urias M.D. T: Report ID: [id number] Reading Location: [place] [address] us Sohail Souza MD IMG XR PROCEDURES Final Result * (ABNORMAL) POCT hemoglobin A1c (06/15/2024 1:31 PM CDT) Hemoglobin A1C, POC 5.8 4.0 - 5.6 % Blood 06/15/2024 1:31 PM CDT us Sohail Souza MD POINT OF CARE TEST ORDERABLES Fi nal Result * (ABNORMAL) Lipid panel (11/26/2023 9:40 AM HIGH DENSITY FINISHING OPERATOR) Cholesterol 165 30 - 199 mg/dL JJ BYRD Comment: Interpretive Data Ages [...] 2018. LDL, calculated 108 <=129 mg/dL JJ Comment: Interpretive Data Ages < [...] on 2018. Non-HDL Cholesterol 127 mg/dL JJ Comment: Interpretive Data Ages < [...] revised on 2018. Chol/HDL ratio 4 JJ Blood 11/26/2023 9:40 AM HIGH DENSITY FINISHING OPERATOR 11/26/2023 9:41 AM HIGH DENSITY FINISHING OPERATOR Sohail Souza MD LAB BLOOD ORDERABLES Final Resul t Performing Organization Address [facility] de Phone Number [place] [phone] [facility] [employer] [place], [place] [id number] * Albumin Creatinine Ratio, Urine (11/26/2023 9:29 AM HIGH DENSITY FINISHING OPERATOR) Albumin Ur 39.3 mg/L JJ Comment: Interpretive Data No reference range established. Current interpretive data was last revised 2019. Creatinine Ur 281.0 mg/dL JJ Comment: Interpretive Data No reference range established. Current interpretive data was last revised 2019. Albumin Creatinine Ratio, Ur 14 1 - 29 mg/g JJ Urine 11/26/2023 9:29 AM HIGH DENSITY FINISHING OPERATOR 11/26/2023 9:44 AM HIGH DENSITY FINISHING OPERATOR Sohail Souza MD LAB URINE ORDERABLES Final Resul t Performing Organization Address [facility] Co de Phone Number [place] [phone] [facility] [place] [address] * HM DIABETES FOOT EXAM (11/29/2019) Diabetic Foot Exam Normal Historical Provider MD HEALTH MAINTENANCE Final Result from Last 3 Months or Most Recently Relevant to Health Maintenance Insurance MEDICARE [facility] Address: [address] [address] [place] [address] [facility] CHOICE PLUS [facility] [employer] IDPA MEDICARE [facility] Address: [address] [address] [place] [address] [facility] [employer] IDPA Advance Directives For more information, please contact: [phone] * Full Code (Latest Code Status on File) Date Activated Date Inactivated Comments 05/18/2018 8:16 PM 05/20/2018 7:57 PM * Full Code Date Activated Date Inactivated Comments 05/18/2018 8:16 PM 05/18/2018 8:16 PM Care Teams Lawn Care Professional Relationship Specialty Start Date End Date Sohail Souza MD [address] [facility] [address] [place] [address] PCP - General Family Medicine 05/28/23 David Stephenson MD [address] [facility] [address] [place] [address] Surgeon Orthopedic Surgery 05/24/19
--- OUTSIDE RECORDS SUMMARY | 2025-01-15 11:59 | XMS_ITS ---
Author Organization [facility] Address [address] [place] [address] Care Team Providers Care Mechanical Engineering Manager Name Role Phone Alba Pompa Primary Care Provider Marcel Lombardi Unavailable [phone] REASON FOR VISIT CRU Medications Medication SIG (Take, Route, Frequency, Duration) Notes Start Date End Date Status OLANZapine 15 MG 1 tablet Orally Once a day Active Divalproex Sodium 250 MG 1 tablet Orally once a day Active Venlafaxine HCl ER 150 MG one capsule Or ally two times daily Active Divalproex Sodium ER 500 MG 1 tablet by mouth every evening Orally Once a day Active traZODone HCl 50 MG 1 tablet by mouth tw ice a day as needed Orally as needed Active Encounters Encounter Location Date Provider Diagnosis [facility] [address] [place] [address] 01/12/2025 Marcel Lombardi Plan Of Treatment Next Appt Details Provider Name:Marcel sanchez, 01/18/2025 08:40:00 AM, [address], [place], [address], Progress Notes * Avery BHAGATDOB:2000 (24 yo M)Acc No.[id number]:01/12/2025 UNLOCKED PROGRESS NOTE Patient: Avery DOWD Provider: Mitul Lombardi, MSN, CORN PICKER, CASTING REPAIRER-C :2000 A ge:24 Y S ex:Male Date:01/12/2025 [facility], [id number] Pcp:Alba Pompa Subjective: * Chief Complaints: * 1 . CRU. * Medical History: * Medications: T aking Divalproex Sodium ER [...] Tablet 1 tablet Orally Once a day Objective: * Vitals: Assessment: Plan: * Treatment: * * Electronic signature of Viktoria Lombardi APRN, [id number] on 01/15/2025 at 11:58 AM CDT Sign off status: Pending * Provider: Mitul Lombardi MSN, CORN PICKER, CASTING REPAIRER-C Date: 0 01/12/2025 Generated for Jaycob bryson/Joselito/Martina on: 0 01/15/2025 11:58 AM CDT
--- OUTSIDE RECORDS SUMMARY | 2025-01-15 11:59 | XMS_ITS | Clinical Summary ---
Author Organization [facility] Address [address] [place] [address] Care Team Providers Care Aging Box Hand Name Role Phone Unavailable Primary Care Provider Unavailabl e Source Comments [facility],non-owned Affiliates and Associated Physician Practices is amultiple site organization consisting of ambulatory clinics and hospital sitesin [place], [place], [place] and [place]. This disclosure is being madepursuant to the Care Everywhere program and may not contain all information available regarding this patient. Last updated 18.[facility] Social History Tobacco Use Types Packs/Day Years Used Date Smoking Tobacco: Never Assessed Sex and Gender Information Value Date Recorded Sex Assigned at Not on file Gender Identity Not on file Sexual Orientation Not on file Plan of Treatment Health Maintenance Due Date Last Done Comments HIV SCREENING 2016 HPV VACCINE (1 - Male 3-dose series) 2016 MENINGOCOCCAL (Group B) VACC INE SHARED DECISION-MAKING (1 of 2 - Standard) 2017 HEPATITIS C SCREENING 07/30/2019 DTAP/TDAP/TD VACCINES (1 - Tdap) 2020 HEPATITIS B VACCINE (1 of 3 - 19+ 3-dose series) 2020 COVID-19 VACCINE (1 - 2023-2 5 season) 2024 INFLUENZA VACCINE (#1) 2024 DEPRESSION SCREENING 10/27/2024 ZOSTER VACCINE (1 of 2) 2051 HIB VACCINE Aged Out No longer eligi ble based on patient's age to complete this topic MENINGOCOCCAL GROUPS A/C/Y/W VACCINE Aged Out No longer eligible b ased on patient's age to complete this topic PNEUMOCOCCAL VACCINE Aged Out No long er eligible based on patient's age to complete this topic
--- OUTSIDE RECORDS SUMMARY | 2025-01-15 11:59 | XMS_ITS | Encounter Summary ---
Author Organization [facility] Care Team Providers Care Elementary Esl Teacher Name Role Phone Issa Palma MD Primary Care Provider [phone] David Stephenson MD Unavailable [phone], Physician Primary Care Provider [phone] Sohail Souza MD Primary Care Provider [phone] Missy Villasenor MD Unavailable [phone] Encounter Details Date Type Department Care Team (Latest Contact Info) Description 07/14/2017 Orders Only [facility] CLINCONV ProviderShayna MD [address] [place] [address] Social History Tobacco Use Types Packs/Day Years Used Date Smoking Tobacco: Never Assessed Sex and Gender Information Value Date Recorded Sex Assigned at Not on file 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 Historical Provider Final Res ult documented in this encounter Visit Diagnoses Not on filedocumented in this encounter Care Teams Elementary Esl Teacher Relationship Specialty Start Date End Date Issa Palma MD [address] [place] [address] PCP - General 05/12/17 12/13/21 No, Physician PCP - General 12/14/21 05/27/23 Sohail Souza MD [address] [place] [address] PCP - General Family Medicine 05/28/23 David Stephenson MD [address] [facility] [address] [place] [address] Surgeon Orthopedic Surgery 05/24/19 Missy Villasenor MD [address] [facility] [address] [place] [address] Consulting Physician Gastroenterology 11/28/23 11/28/23 documented as of this encounter
[2025-01-15 12:07] LABS: Basophils Absolute Auto 0.1 K/mm3 (0.0-0.1); Basophils Percent Auto 0.5 % (0.2-1.2); Eosinophils Absolute Auto 0.1 K/mm3 (0-0.3); Eosinophils Percent Auto 1.3 % (0-4.4); Hematocrit 44.1 % (42.0-52.0); Hemoglobin 14.9 g/dL (14.0-18.0); Immature Granulocyte Absolute 0.02 K/mm3 (0.00-0.031); Immature Granulocyte Percent A 0.2 % (0-0.5); Lymphocytes Absolute Auto 2.13 K/mm3 (0.9-3.2); Mean Corpuscular HGB Conc 33.8 g/dl (32-36); Mean Corpuscular Hemoglobin 29.3 pg (26-34); Mean Corpuscular Volume 86.6 fl (80-100); Mean Platelet Volume 9.6 fl (7.4-10.4); Monocytes Absolute Auto 0.8 K/mm3 (0.1-0.6); Monocytes Percent Auto 8.5 % (2.6-8.5); Neutrophils Absolute Auto 6.5 K/mm3 (1.3-6.7); Neutrophils Percent Auto 67.5 % (45.5-73.1); Platelet Count Result 325 k/mm3 (150-375); Red Blood Count 5.09 M/mm3 (4.6-6.20); Red Cell Distribution Width 13.1 % (11.5-14.5); White Blood Count 9.7 K/mm3 (4.5-10.0)
[2025-01-15 12:20] LABS: Acetaminophen < 10 ug/mL (10-30); Alanine Aminotransferase 65 U/L (6-50); Albumin Level 4.8 g/dL (3.5-5.1); Alkaline Phosphatase 61 U/L (38-126); Anion Gap 12 mmol/L (4-12); Aspartate Amino Transferase 37 U/L (17-59); Bilirubin,Total 0.7 mg/dL (0.2-1.3); Blood Urea Nitrogen 14 mg/dL (9-20); Carbon Dioxide 30 mmol/L (22-30); Chloride 101 mmol/L (98-107); Estimated CRCL calculation 132 ml/min; Estimated Glomerular Filt Rate > 60; Ethanol < 10 mg/dL (<10); Glucose 102 mg/dL (65-110); Potassium 4.3 mmol/L (3.4-5.0); Salicylate < 1.0 mg/dL (2-20); Sodium 143 mmol/L (137-145)
[2025-01-15 12:31] LABS: Prothrombin Time 13.8 Seconds (11.1-14.7)
[2025-01-15 12:32] LABS: Partial Thromboplastin Time 28.2 Seconds (22.3-36.8)
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
[2025-01-15 12:42] LABS: SARS-CoV-2 RNA PCR Negative (Negative)
--- NOTE | 2025-01-15 12:47 | PC.NURSE ---
patient given urinal, lowered side rail. advised to call when urine sample is obtained so we can collect it.
[2025-01-15 12:50] LABS: Thyroid Stimulating Hormone 0.929 uIU/mL (0.465-4.680)
--- NOTE | 2025-01-15 12:51 | PC.NURSE ---
Spoke with HI Correa with Poison Control. She states peak time for proponalol is 1-4 hours and half life is 3-6 hours. She suggest to keep patient for at least 5-6 hours to watch for bradycardia and hypotension. Patient is asymptomatic at this time.
[2025-01-15 12:59] LABS: Add Urine Microscopic? YES; Appearance Urine Cloudy (Clear); Bacteria Urine None Seen /hpf; Bilirubin Urine Negative (Negative); Blood Urine Negative (Negative); Color Urine Yellow (Yellow); Glucose Urine UA Negative (Negative); Ketones Urine Trace mg/dL (Negative); Leukocyte Esterase Ur Negative LEU/UL (Negative); Nitrate Urine Negative (Negative); Non Pathogenic Casts 0-2; Protein Urine Negative (Negative); RBC Urine 0-2 /hpf (0-2); Specific Grav Ur 1.016 (1.001-1.035); Squamous Epithelial Cell Urine None Seen /hpf (Few); WBC Urine 0-5 /hpf (0-3); pH Urine 7.5 (5.0-9.0)
[2025-01-15 13:10] LABS: Amphetamine Screen Urine Negative (Negative); Barbiturate Screen Urine Negative (Negative); Benzodiazepines Screen Urine Negative (Negative); Cannabinoid Screen Urine Positive (Negative); Cocaine Screen Urine Negative (Negative); Methadone Screen Urine Negative (Negative); Opiate Screen Urine Negative (Negative); Phencyclidine Screen Urine Negative (Negative)
--- NOTE | 2025-01-15 15:15 | PC.NURSE ---
Spoke with patient's mother per patient permission
--- NOTE | 2025-01-15 15:23 | PC.NURSE ---
Spoke with Sunny from [facility] Control [facility] for update. Patient remains asymptomatic
[2025-01-15] MEDS: LORazepam INJ (*CRX) 2 MG/ML VIAL 1 MG IV PUSH (15:42)
[2025-01-15] MEDS: Please add drug allergy info to patient profile. 1 EACH XX (15:47)
--- NOTE | 2025-01-15 17:23 | PC.NURSE ---
crisis at bedside
--- NOTE | 2025-01-15 17:51 | PC.NURSE ---
Provider informed patient of involuntary admission and patient walked out of department. Patient told provider he was not going and walked passed provider and sitter walking out of the ambulance bay doors
--- NOTE | 2025-01-15 17:53 | PC.NURSE ---
tiger machine operatorHattie DO [employer] [facility] [employer]
--- NOTE | 2025-01-15 18:40 | PC.NURSE ---
Patient continues to deny HI/SI at this time and state that he does not need any help . This RN able to verbally deescalate patient and explain to him the process.
--- NOTE | 2025-01-15 18:47 | ECG_ITS ---
Test Date: 2025-01-15 18:52:04 Measurements Intervals [place] Rate: 76 P: 33 MI: 148 QRS: 71 QRSD: 116 T: 24 QT: 376 QTc: 424 Interpretive Statements SINUS RHYTHM NONSPECIFIC T-WAVE ABNORMALITY No previous ECG available for comparison Electronically Signed On 01-16-2025 13:20:21 CDT by Jeanne Cruz M.D.
--- NOTE | 2025-01-15 18:49 | PC.NURSE ---
Spoke with HI Correa from poison control and she states patient is medically cleared from them. Patient remains asymptomatic.
--- NOTE | 2025-01-15 18:52 | PC.NURSE ---
Spoke with HI Correa with poison control and she states patient is medically cleared
[2025-01-15] MEDS: LORazepam (*CRX) 1 MG TABLET 2 MG PO (19:01)
[2025-01-15] MEDS: HALOPERIDOL LACTATE 5 MG/ML VIAL IM (19:01)
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
--- NOTE | 2025-01-15 19:28 | PC.NURSE ---
per edp dr. mcnally patient medically cleared to be placed into room 15. this rn confirmed moving patient. 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 pt was also placed in green scrubs at this time.
--- NOTE | 2025-01-15 19:30 | PC.NURSE ---
sitter and security at bedside due to elopement precautions. precautions initiated.
[2025-01-15] MEDS: diphenhydrAMINE HCl CAP 25 MG CAPSULE 50 MG PO (22:41)
--- NOTE | 2025-01-15 23:39 | PC.NURSE ---
this rn updated patient home medication.
[2025-01-16 07:21] VITALS: BP 140/71; PULSE 84; RESP 16; TEMP 36.6; O2SAT 100
== END 2025-01-16 07:34 ==
PROVIDERS: Emergency Provider Emergency Medicine
DX: T44.7X2A Poisoning by beta-adrenoreceptor antagonists, intentional self-harm, initial encounter (principal); Z11.52 Encounter for screening for COVID-19; Z79.899 Other long term (current) drug therapy
CPT/HCPCS: 36415; 80053; 80143; 80179; 80307; 81001; 82077; 83735; 84443; 85025; 85610; 85730; 87635; 93005; 96372; 96374; 99285; A9270; J1630; J2060